=== PATIENT | female | born 1955 | race African-American/Black ===

== ENCOUNTER 2019-02-14 12:02 | Inpatient (IN) ==
[~2019-02-14 12:02] MED LIST: BENADRYL ONE; NS 0 ML ONE; NS 1,000 ML IV ONE; NS 1,000 ML ONE; TYLENOL ONE
[2019-02-14 13:56] LABS: URINE SOURCE CLEAN CATCH
[2019-02-14 13:59] LABS: BILIRUBIN URINE NEGATIVE (NEGATIVE); BLOOD URINE SMALL (NEGATIVE); COLOR YELLOW; GLUCOSE URINE NEGATIVE (NEGATIVE); KETONE URINE 20 mg/dL (NEGATIVE); LEUKOCYTES URINE LARGE (NEGATIVE); NITRITE URINE POSITIVE (NEGATIVE); PROTEIN URINE 50 mg/dL (NEGATIVE); SP GRAVITY URINE 1.022; TURBIDITY URINE HAZY (CLEAR); UROBILINOGEN URINE NORMAL (NORMAL)
[2019-02-14 13:59] LABS: BASO# 0.01 X1000 (0.0-0.2); BASO% 0.6 % (0.0-0.8); EOS# 0.01 X1000 (0.0-0.7); EOS% 0.6 % (0.0-10.0); HEMATOCRIT 31.4 % (37.0-47.0); HEMOGLOBIN 10.9 g/dL (12.0-16.0); LYMPH# 0.85 X1000 (1.2-3.4); LYMPH% 51.2 % (20.5-51.1); MCH 32.2 PG (27-31); MCHC 34.7 g/dL (33-37); MCV 92.9 FL (81-99); MONO# 0.31 X1000 (0.11-0.59); MONO% 18.7 % (1.7-9.3); NEUT# 0.48 X1000 (1.4-6.5); NEUT% 28.9 % (42.2-75.2); PLT 35 X1000 (130-400); RBC 3.38 XMIL (4.2-5.4); RDW 14.9 % (11.5-14.5); WBC 1.66 X1000 (4.8-10.8)
[2019-02-14 14:00] LABS: UR EPITHELIAL CELLS <10 /HPF (<10); URINE BACTERIA 4+ /HPF; URINE RBC <10 /HPF (<10); URINE WBC TNTC /HPF (<10)
--- NOTE | 2019-02-14 14:04 | EKG Report ---
Test Performed on : 02/14/2019 2:03:23 PM Test Reason : sob Blood Pressure : / mmHG Vent. Rate : 088 BPM Atrial Rate : 088 BPM P-R Int : 086 ms QRS Dur : 090 ms QT Int : 388 ms P-R-T Axes : 014 064 062 degrees QTc Int : 469 ms Sinus rhythm. with short [place] Nonspecific ST abnormality Abnormal ECG When compared with ECG of 09-OCT-2017 14:42, No significant change was found Unconfirmed Result
--- NOTE | 2019-02-14 14:16 | PROVIDER DOCUMENTATION ---
HPI-General Adult - General Chief Complaint: General Adult Stated Complaint: DR. MEJIA REFERRED Time Seen by Provider: 02/14/19 13:04 Source: patient, family Unable to obtain history due to:: other (poor historian) Allergies/Adverse Reactions: Patient Allergies Allergy/AdvReac Type Severity Reaction Status Date / Time Penicillins Allergy Unknown Verified 10/09/17 15:07 - History of Present Illness -Gen Adult Nature of Presenting Problems: patient is a 63 yobf presenting to the ED today for low blood pressure. family reports they were going to an apt upstairs, and they sent her down here to the ED for low blood pressure. patient denies any complaints. patient reports she has been receiving treatment for brain cancer for 6-8 months. she denies SOB, CP, dizziness, nausea, vomiting, diarrhea, weakness. family did not know r easoning for doctor appointment this morning, or reason for coming to the ED other than low blood pressure. family and patient are poor historians. Location of Pain/Injury: reports: none Pain Radiation: reports: no radiation Quality of Pain: reports: none Onset/Duration: reports: unsure Associated Symptoms: reports: denies symptoms. denies: anxiety, chest pain, cough, diaphoresis, diarrhea, dizziness, fatigue, fever/chills, genitourinary problems, loss of appetite, muscle aches, shortness of breath, weakness, trouble walking Similar Symptoms Previously?: Yes Recently seen or treated by another doctor?: Yes Review of Systems - Adult - REVIEW OF SYSTEMS - ADULT Constitutional: reports: no symptoms reported. denies: chills, fever Eyes: reports: no symptoms reported Ears, Nose, Mouth & Throat: reports: no symptoms reported Cardiovascular: reports: no symptoms reported. denies: chest pain, palpitations Respiratory: reports: no symptoms reported. denies: cough, shortness of breath, wheezing Gastrointestinal: reports: no symptoms reported. denies: abdominal pain, diarr hea, nausea, vomiting Genitourinary: reports: no symptoms reported Musculoskeletal: reports: no symptoms reported Integumentary: reports: no symptoms reported Neurological: reports: no symptoms reported. denies: dizziness/vertigo, headache/migraines Psychiatric: reports: no symptoms reported Endocrine: reports: no symptoms reported Hematologic/Lymphatic: reports: no symptoms reported Allergic/Immunologic: reports: no symptoms reported All Other Systems: Reviewed and Negative Past History - Adult - PAST MEDICAL HISTORY-ADULT Review of Records: reports: Old Records Reviewed, Nursing Assessment Review, Medications Reviewed Major Childhood Illnesses: reports: denies history Cardiovascular: reports: HTN Endocrine/Immune: reports: thyroid disorder - PRIOR SURGERIES/PROCEDURES Surgical/Procedure History: reports: appendectomy, cholecystectomy, hysterectomy - IMMUNIZATION STATUS Childhood Immunizations: See Nurse Assessment Flu Vaccine: See Nurse Assessment - SOCIAL HISTORY Smoking: cigarettes Provider spent 3-5 mins advising pt. on dangers of tobacco.: Discussed manners to quit use, and f/u contacts for add'l counseling. Physical Exam-General - PHYSICAL EXAM-ADULT Initial Vital Signs Reviewed: Yes - CONSTITUTIONAL General Appearance: alert, no apparent distress, thin - EYES Eyes: PERRL/EOMI - HEAD, EARS, NOSE, MOUTH & THROAT HENMT: normocephalic/atraumatic, moist mucous membranes - NECK Neck: non-tender, full range of motion, supple - RESPIRATORY Respiratory: chest non-tender, lungs clear, normal breath sounds, no pleuratic chest pain, no respiratory distress, no accessory muscle use - CARDIOVASCULAR Cardiovascular: normal peripheral pulses, regular rate, rhythm, no edema, no JVD - GASTROINTESTINAL (ABDOMEN) Abdominal Exam: normal bowel sounds, non tender, soft - LYMPHATIC Lymphatic: no adenopathy - MUSCULOSKELETAL Back Exam: normal inspection, no CVA tenderness, no vertebral tenderness Extremity: normal range of motion, non-tender, normal gait - SKIN Integumentary: normal color, normal turgor, warm/dry - NEUROLOGIC Neurologic: grossly normal, no motor/sensory deficits - PSYCHIATRIC Psych/Mental Status: normal mood/affect, normal thought content, normal thought process, oriented x 3 Progress - PLAN OF CARE/RESULTS Progress/Plan/Lab Results: Vital Signs - 8 hr 02/14/19 12:04 Temperature 97.6 F Pulse Rate 93 H Respiratory Rate 18 Blood Pressure 87/64 O2 Sat by Pulse Oximetry 99 Laboratory Results - last 24 hr 02/14/19 02/14/19 13:40 13:49 WBC 1.66 L RBC 3.38 L Hgb 10.9 L Hct 31.4 L MCV 92.9 MCH 32.2 H MCHC 34.7 RDW Std Deviation 14.9 H Plt Count 35 L* MPV Not Reportable Immature Gran % (Auto) 0.0 Neut % (Auto) 28.9 L Lymph % (Auto) 51.2 H [place] % (Auto) 18.7 H Eos % (Auto) 0.6 Baso % (Auto) 0.6 Immature Gran # (Auto) 0.00 Neut # (Auto) 0.48 L* Lymph # (Auto) 0.85 L [place] # (Auto) 0.31 Eos # (Auto) 0.01 Baso # (Auto) 0.01 Urine Source CLEAN CATCH Urine Color YELLOW Urine Turbidity HAZY Urine pH 6.0 Ur Specific [place] 1.022 Urine Protein 50 A Ur Glucose (Stick) NEGATIVE Ur Ketones (Stick) 20 A Urine Blood SMALL A Urine Nitrite POSITIVE A Urine Bilirubin NEGATIVE Urobilinogen Dipstick NORMAL Urine Leukocytes LARGE A Urine WBC (Auto) TNTC A Urine RBC (Auto) <10 U Epithel Cells (Auto) <10 Urine Bacteria (Auto) 4+ Orders Category Date Time Status CBC WITH ELECTRONIC DIFF [HEME] Stat Lab 02/14/19 13:40 Completed COMPREHENSIVE METABOLIC PANEL [CHEM] Stat Lab 02/14/19 13:43 Received UA [URINALYSIS] [URINALYSIS] Stat Lab 02/14/19 13:49 Completed EKG [EKG] Stat Ther 02/14/19 13:07 Draft discussed plan of care with patient- she understands and agrees with plan of care and denies any questions at this time. 1440: spoke with Dr. Mejia's PA- she reports patient was at last week for sepsis, neutropenia, and UTI. she was discharged on 02/05. she was seen in their office on Monday for a CBC- they report they want her platelet count above 20 since she has a history of GBM- they sent her to outpatient to receive platelets today- the outpatient nurses called their office for the patient's low blood pressure and weakness, and sent her to the ED. patient is receiving Temodar for GBM. Result Diagrams: 02/14/19 13:40 02/14/19 13:40 - EKG 1 Time of EKG reading by physician:: 14:03 EKG Read and Signed by:: Jimi Murphy EKG Interpretation (*Must complete 3 of following elements*): Normal Rate: 88 Rhythm: sinus [place]: normal QRS: normal RI Interval: shortened ST Wave: non-specific ST changes - CONSULTS/PCP/HOSPITALIST Notification #1 *Consult/PCP/Hospitalist*: JONATHAN Schwartz Time Discussed: 15:05 Reason/Comments: admit for UTI and weakness. will see patient in ED Consult Disposition: Will see in ED, Admit Departure - Departure Date of Disposition Decision: 02/14/19 Time of Disposition Decision: 15:00 DIAGNOSIS: Urinary tract infection Qualifiers: Urinary tract infection type: site unspecified Hematuria presence: without hematuria Qualified Code(s): N39.0 - Urinary tract infection, site not specified Disposition: ADMITTED INPATIENT 09 Certified Medical Emergency: Emergent Condition: Fair - Critical Care Note This patient required my direct & personal management of CC.: No Attestation - Physician/ GAYATRI Attestation Patient care was provided by Advanced Practice Provider:: Yes Advanced Practice Provider:: Thea Stark Advanced Practice Provider documentation review:: The Mid-level provider documentation, treatment plan and medical decision making was reviewed by the physician who agrees with all treatment and medical decision making by the MLP. The physician spent face to face time with patient:: No Advanced Practice Provider documentation review:: Supervising physician onsite and consulted in the evaluation and care of this patient. The physician did not have a face to face encounter with the patient.
[2019-02-14 14:19] LABS: AGAP 15; ALB/GLOB RATIO 0.8; ALBUMIN 2.4 g/dL (3.5-5.0); ALKALINE PHOSPHATASE 82 U/L (32-104); BUN 8 mg/dL (8-22); CHLORIDE 102 mmol/L (98-107); COSMO 276; CREATININE 0.5 mg/dL (0.5-0.9); ESTIMATED GFR > 60; GLUCOSE 70 mg/dL (70-104); GOT 24 U/L (10-30); GPT 15 U/L (10-36); SODIUM 140 mmol/L (136-145); TCO2 23 mmol/L (25-35); TOTAL BILIRUBIN 0.51 mg/dL (0.20-1.00); TOTAL PROTEIN 5.3 g/dL (6.3-8.3)
[2019-02-14] MEDS ORDERED: NS 1,000 ML IV ONE (14:30)
[2019-02-14] MEDS ORDERED: NS 1,000 ML IV SCH (16:54)
[2019-02-14] MEDS ORDERED: TYLENOL PO PRN (16:54)
[2019-02-14] MEDS ORDERED: ZOFRAN IV PRN (16:54)
--- NOTE | 2019-02-14 16:59 | Diag Imaging Result Doc PS360 ---
EXAM: CHEST-1 VIEW 02/14/2019 HISTORY: Sepsis protocol TECHNIQUE: AP upright chest at 1647 COMMENT: There is apparent platelike atelectasis over the right hemidiaphragm. The lungs are generally clearer than they were on 10/09/2017. Heart is displaced slightly to the right side compared to the previous examination, which may be due to atelectasis. The radiograph is to be repeated with better inspiration. IMPRESSION: Subsegmental atelectasis in the right lower lobe. Electronically signed by Raj Joe 02/14/2019 4:57 PM
--- NOTE | 2019-02-14 17:16 | Diag Imaging Result Doc PS360 ---
EXAM: CHEST-PORTABLE 02/14/2019 HISTORY: REPEAT TECHNIQUE: AP portable upright at 1708 COMMENT: The platelike atelectasis which was previously seen over the right hemidiaphragm is less prominent. There is still likely to be subsegmental atelectasis however and the heart is still somewhat displaced to the right. IMPRESSION: Right lower lobe atelectasis. Electronically signed by Raj Joe 02/14/2019 5:13 PM
[2019-02-14 17:32] LABS: INR 1.11; PROTIME 14.5 Seconds (11.0-16.0)
[2019-02-14 17:33] LABS: PTT 29.7 Seconds (22.3-41.8)
[2019-02-14 17:35] LABS: EOS# 0.01 X1000 (0.0-0.7); EOS% 0.6 % (0.0-10.0); LYMPH# 0.91 X1000 (1.2-3.4); LYMPH% 56.2 % (20.5-51.1); MONO# 0.31 X1000 (0.11-0.59); MONO% 19.1 % (1.7-9.3); MPV 11.1 FL (7.4-10.4); NEUT% 24.1 % (42.2-75.2)
[2019-02-14 17:36] LABS: HEMATOCRIT 29.3 % (37.0-47.0); MCH 31.7 PG (27-31); MCHC 34.1 g/dL (33-37); RBC 3.15 XMIL (4.2-5.4); RDW 14.8 % (11.5-14.5); WBC 1.62 X1000 (4.8-10.8)
[2019-02-14 17:39] LABS: NEUT# 0.39 X1000 (1.4-6.5); PLT 28 X1000 (130-400)
[2019-02-14 17:52] LABS: AGAP 13; ALBUMIN 2.5 g/dL (3.5-5.0); ALKALINE PHOSPHATASE 76 U/L (32-104); BUN 7 mg/dL (8-22); CALCIUM 7.7 mg/dL (8.8-10.2); CHLORIDE 105 mmol/L (98-107); CK PROFILE 23 U/L (24-173); COSMO 280; CREATININE 0.4 mg/dL (0.5-0.9); ESTIMATED GFR > 60; GLUCOSE 73 mg/dL (70-104); GOT 19 U/L (10-30); GPT 13 U/L (10-36); POTASSIUM 4.1 mmol/L (3.5-5.1); SODIUM 142 mmol/L (136-145); TCO2 24 mmol/L (25-35); TOTAL BILIRUBIN 0.44 mg/dL (0.20-1.00); TOTAL PROTEIN 4.9 g/dL (6.3-8.3)
[2019-02-14 18:18] LABS: LARGE PLATELETS OCCASIONAL; LYMPHS 52 % (21-51); MONO 16 % (1-9); SEGS 32 % (42-75)
[2019-02-14 18:19] LABS: POIKILOCYTOSIS 1+
[2019-02-14] MEDS: ROCEPHIN 1 GM in NS 50 ML IV SCH (18:40)
--- NOTE | 2019-02-14 20:28 | HISTORY AND PHYSICAL ---
PRIMARY CARE PHYSICIAN: Dr. Robinson Martinez. ONCOLOGIST: Dr. Maranda Paris. CHIEF COMPLAINT: Was in outpatient today getting platelets and became weak and dropped her blood pressure, so she was sent to the emergency room for evaluation. HISTORY OF PRESENTING ILLNESS: This is a 63-year-old female who presents to [facility] after she was an outpatient today to get a platelet infusion secondary to her glioblastoma. While there, she became weak and dropped her blood pressure. When she arrived to the emergency room, she had a blood pressure of 87/64. She was given a liter of normal saline and her blood pressure came up to 118/64. She was noted to have been discharged from [facility] on 02/05/2019 with a urinary tract infection, sepsis and neutropenia. So, she will now be admitted for further evaluation and treatment. PAST MEDICAL HISTORY: Of glioblastoma, hypertension, hypothyroidism. PAST SURGICAL HISTORY: Of an appendectomy, cholecystectomy and hysterectomy. FAMILY HISTORY: Reviewed and noncontributory. SOCIAL HISTORY: She currently lives with family. Denies any tobacco, alcohol or illicit drug use. ALLERGIES: To penicillin. HOME MEDICATIONS: We will need to obtain a current list of medications, reconcile, restart and review as appropriate. We will place an order for nursing to update and confirm home medications. LABORATORY DATA: Showed a white blood cell count of 1.66, hemoglobin 10.9, hematocrit 31.4, platelets 35,000. Sodium 140, potassium 4.0, chloride 102, carbon dioxide of 23, BUN of 8, creatinine 0.5, glucose of 70, plasma lactate of 1.2. Urinalysis showed positive nitrites, large leukocytes, 4+ bacteria. EKG showed normal sinus rhythm with short PA at 88. REVIEW OF SYSTEMS: She denied any fever, chills, blurred vision, dizziness. She did have some generalized weakness, low blood pressure. She denied any chest pain, coughing, shortness of breath. She denied any abdominal pain, constipation, diarrhea, burning or hurting with urination. PHYSICAL EXAMINATION: VITAL SIGNS: On arrival she had a temp of 97.6 degrees, pulse 93, respirations 18, blood pressure was 87/64. After a L of fluids it came up to 118/64. She was saturating 99% on 2 L. GENERAL: This is a 63-year-old, thin, cachectic, female who is lying in the bed and answers questions appropriately. HEENT: Normocephalic, atraumatic. Normal ENT inspection. Oropharynx and nares are clear. EYES: Pupils are equal, round, reactive to light and accommodation. Extraocular movements are intact. NECK: Normal inspection. Normal range of motion. LUNGS: Clear to auscultation bilaterally. Equal lung expansion and chest wall movement. HEART: With regular rate and rhythm. No murmurs, rubs, or gallops. ABDOMEN: Soft, nontender, nondistended. Bowel sounds are present x4 quadrants. MUSCULOSKELETAL: She has 3/5 strength x4 extremities. NEUROLOGICAL: The cranial nerves 2-12 are grossly intact. ASSESSMENT: 1. Urinary tract infection. 2. Pancytopenia. 3. Hypotension. 4. Glioblastoma. 5. History of hypothyroidism. PLAN: She will be admitted to the medical unit, placed on telemetry. We will consult her oncologist, Dr. Paris. Place her on neutropenic precautions. Urine cultures. Blood cultures x2 are pending. Normal saline at 125 mL an hour, Rocephin 1 gram IV q.24, we will recheck a CBC, BMP in the a.m. and further orders after seen by attending and by market research consultant. Dictated by JONATHAN Vences for Stevenson Bernard MD cc: JONATAHN Vences MD Wayne E. Thomas, MD I agree with most components of history, physical, assessment and plan. A separate addendum has been dictated. KALEIDA HEALTHMary
--- NOTE | 2019-02-14 20:58 | HISTORY AND PHYSICAL ---
ADDENDUM: I agree with most components of history, physical, assessment and plan. In brief, Ms. 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 It is unclear whether she completed her platelet transfusion, though, she was asymptomatic. In the ER, her initial recorded blood pressure was 80s over 60s and so hospitalist team was consulted for further management. SUBJECTIVE: She denies any chest pain, shortness of breath, palpitation, nausea, vomiting, abdominal pain, blurring of vision, any rash or itching. She states she has not been able to eat very. VITALS: Temperature 97.9 degrees, pulse 89, respiratory rate 18, blood pressure 120/75, saturating 95% room air. PHYSICAL EXAMINATION: GENERAL: Does not appear in any acute distress. MOUTH: Oral cavity is moist. LUNGS: Air entry bilaterally equal. No wheeze, rhonchi, crackles. CARDIOVASCULAR: S1, S2 normal. No rash. The patient does have a prominent, what appears to be mitral regurgitation murmur, as well as aortic regurgitation murmur best heard on apex as well as left sternal border respectively. No gallop. ABDOMEN: Soft, nontender. EXTREMITY: No lower extremity edema. NEUROLOGIC: She is alert. She does have a squint. Her pupils are bilaterally equal reacting to light. She is oriented to place, person, partially with the situation. She does have some memory impairment. She uses walker at baseline. LABS: Suggestive of WBC 1.6, hemoglobin 10.9 platelet count 35,000 normal electrolytes. Urinalysis has positive nitrite, large leukocytes. ASSESSMENT AND PLAN: 1. Hypotension, multifactorial in the setting of poor p.o. intake, ongoing sepsis with UTI. 2. Pancytopenia. 3. Left parietal glioblastoma multiforme. PLAN: 1. Start patient on intravenous fluid resuscitation, neutropenic diet, intravenous ceftriaxone. 2. I will resume her home medications as they are reconciled. She was supposed to be taking levetiracetam for seizure precautions. Plan of care discussed with the patient. All of her questions have been answered. cc: Stevenson Bernard MD MTDD
[2019-02-14] MEDS: NORCO-10 PO PRN (22:33)
[2019-02-15 06:59] LABS: AGAP 10; BUN 7 mg/dL (8-22); CHLORIDE 110 mmol/L (98-107); COSMO 283; CREATININE 0.4 mg/dL (0.5-0.9); ESTIMATED GFR > 60; GLUCOSE 71 mg/dL (70-104); POTASSIUM 3.2 mmol/L (3.5-5.1); SODIUM 144 mmol/L (136-145); TCO2 24 mmol/L (25-35)
[2019-02-15 07:04] LABS: BASO# 0.01 X1000 (0.0-0.2); BASO% 0.7 % (0.0-0.8); EOS# 0.02 X1000 (0.0-0.7); EOS% 1.3 % (0.0-10.0); HEMATOCRIT 27.5 % (37.0-47.0); HEMOGLOBIN 9.2 g/dL (12.0-16.0); LYMPH# 0.83 X1000 (1.2-3.4); LYMPH% 54.6 % (20.5-51.1); MCH 31.1 PG (27-31); MCHC 33.5 g/dL (33-37); MCV 92.9 FL (81-99); MONO# 0.41 X1000 (0.11-0.59); MPV 11.7 FL (7.4-10.4); NEUT# 0.25 X1000 (1.4-6.5); NEUT% 16.4 % (42.2-75.2); PLT 28 X1000 (130-400); RBC 2.96 XMIL (4.2-5.4); RDW 14.9 % (11.5-14.5); WBC 1.52 X1000 (4.8-10.8)
[2019-02-15 07:06] LABS: CALCIUM 7.1 mg/dL (8.8-10.2)
[2019-02-15] MEDS ORDERED: LR 1,000 ML IV SCH (07:30)
[2019-02-15 08:19] LABS: LYMPHS 60 % (21-51); MONO 20 % (1-9); NRBC 1 % (0-0); SEGS 20 % (42-75)
[2019-02-15] MEDS: NORCO-10 PO PRN ×2 (09:41→17:36)
[2019-02-15] MEDS: KLOR-CON PO SCH ×2 (09:43→13:03)
[2019-02-15] MEDS ORDERED: GRANIX SUBQ ONE (11:24)
[2019-02-15 12:40] LABS: INR 1.07
[2019-02-15 12:41] LABS: PTT 30.8 Seconds (22.3-41.8)
[2019-02-15] MEDS ORDERED: NS 500 ML ONE (14:08)
[2019-02-15] MEDS: ROCEPHIN 1 GM in NS 50 ML IV SCH (20:27)
--- NOTE | 2019-02-15 21:39 | PROGRESS NOTE ---
DATE: 02/15/2019 INTERVAL HISTORY: No acute event overnight. She is about to get her platelet transfusion. Her blood pressure was 90s over 60s on most occasions. However, her MAPs are more than 60 mmHg and her lactate was normal. SUBJECTIVE: She is complaining that she still has poor appetite. We discussed about encouraging her to eat more. OBJECTIVE: vital signs: Currently, temperature 98.2 degrees, pulse 88, respiratory rate 16, blood pressure 90/60, saturating 100% on room air. She does not appear in any acute distress. Oral cavity is moist. Air entry bilaterally equal. No wheeze, rhonchi, or crackles. S1, S2 normal. Prominent mitral regurgitation murmur. No gallop. Abdomen: Soft, nontender. She does have bilateral lower extremity edema. She is alert. She has a squint. Her pupils are bilaterally equal, reacting to light. She is oriented to place, person, and mostly with the situation. She does have some memory and word-finding difficulty at baseline, likely in the setting of her glioblastoma. LABORATORY: Suggestive of persistent pancytopenia with absolute neutrophil count of less than 500. Her coagulations otherwise within acceptable range. She does have hypokalemia and hyperchloremia, and her intravenous fluids have been changed. Blood culture, urine cultures, are in lab. ASSESSMENT AND PLAN: 1. Hypotension in the setting of poor oral intake, acute cystitis with suspected sepsis. Continue lactated Ringer's. Continue to encourage oral intake. Continue intravenous ceftriaxone. Follow up final blood culture and urine culture results. 2. Pancytopenia. Patient is receiving platelet transfusion. Continue filgrastim as per Hematology/Oncology recommendations. Continue to monitor CBC. 3. Others. She does have history of left parietal glioblastoma multiforme. Hematology/Oncology on board. 4. Disposition. I will continue to monitor patient inside hospital. Plan of care discussed with her. All of her questions have been answered. cc: Stevenson Bernard MD
--- NOTE | 2019-02-15 21:59 | HEMO/ONC CONSULTATION ---
DATE: 02/15/2019 CONSULTATION REQUESTED BY: Hospice service. REASON FOR CONSULTATION: GBM, patient known. HISTORY OF PRESENT ILLNESS: Ms. Herrera is a 63-year-old female, who is known to us as we are currently treating her for GBM and was recently on Temodar. She was actually at our office on Monday for a lab check, after being admitted to [facility] last week for urosepsis, neutropenia, and weakness. On her visit on Monday, her blood pressure was normal and the patient was feeling relatively fine. She was still on p.o. antibiotics from her hospital discharge. She was neutropenic and we checked labs on Monday. We advised the patient to complete her antibiotics and to contact us if she had any further issues. The patient also had thrombocytopenia, so we set her up to receive a unit of platelets at [facility]. She went there , and they reported that she was very weak, somewhat drowsy, and they were concerned about her state. They tried to resuscitate her with some fluids, but we ultimately decided to send her to the emergency department. She was evaluated there and has subsequently been admitted. She continues to have a urinary tract infection and she continues to be neutropenic. The patient is in today and has no acute complaints while I am in the room. There is no family at bedside. The patient and her family tend to be poor historians. PAST MEDICAL HISTORY: 1. Glioblastoma. Currently, on Temodar, but treatment has been on hold. She is actually due for her next cycle in a couple of days, but we will not proceed with any further treatment at this time. 2. Hypertension. 3. Hypothyroidism. PAST SURGICAL HISTORY: 1. Appendectomy. 2. Cholecystectomy. 3. Hysterectomy. 4. Left parietal tumor debulking in September 2017. SOCIAL HISTORY: Patient lives with her daughters and they help take care of her. FAMILY HISTORY: Positive for hypertension. REVIEW OF SYSTEMS: A 12-point review of systems is negative, except for those expressed in the HPI. PHYSICAL EXAMINATION: Vital Signs: Today, with a temperature 98.5 degrees, heart rate 92, respirations 20, blood pressure 91/67, O2 saturation 100% on room air. General: This is an -[place] female, lying in hospital bed in no acute distress. Head: Evidence of previous craniotomy, but no acute changes. Eyes: Pupils equal, round, reactive. Ears/nose/throat/neck/Mouth: Oral mucosa appears to be normal. Gross auditory acuity is intact. Cardiovascular: Regular rate and rhythm. Respiratory: No respiratory effort with clear to auscultation. Gastrointestinal: Abdomen is soft. Musculoskeletal: No bony abnormalities. Skin: No rash. Neurologic: Patient is alert and oriented. LABORATORY AND STUDIES: White blood cells are 1.52, hemoglobin 9.2, platelet count 28,000, neutrophil count is 250. Sodium 144, potassium 3.2, chloride 110, CO2 of 24, BUN 7, creatinine 0.4. Urinalysis is consistent with urinary tract infection. ASSESSMENT AND PLAN: 1. Glioblastoma multiforme. The patient has been treated with Temodar. Treatment is on hold currently. 2. Urosepsis. Ongoing. The patient was recently in [facility], where she was on IV antibiotics. She has transitioned to p.o. antibiotics as an outpatient, but seems to have failed therapy and has ongoing issues. She is now in with IV antibiotics. 3. Neutropenia. The patient had chemotherapy several weeks ago. We are going to go ahead and start her on Granix due to her acute infection. We will monitor counts daily. 4. Thrombocytopenia. We are going to give her a unit of platelets today. Check a DIC panel. No evidence of bleeding currently. 5. Hypotension. Patient's blood pressure does run on the lower side in our office. However, she presented to outpatient medical prior to her platelet transfusion yesterday with a blood pressure of 70/50. Continue IV fluids per the primary team. Thank you for consulting us on Ms. Renetta Lino while she is here at [facility]. We will continue to follow along and adjust our treatment plan per hospital course. Dictated by CELSA Slaughter for Maranda Paris MD cc: Maranda Paris MD I have seen and examined the patient and the above note reflects my history, physical exam, assessment and plan. Maranda BILLINGS
[2019-02-16 05:51] LABS: BASO# 0.01 X1000 (0.0-0.2); BASO% 0.3 % (0.0-0.8); EOS# 0.04 X1000 (0.0-0.7); EOS% 1.3 % (0.0-10.0); HEMATOCRIT 25.3 % (37.0-47.0); HEMOGLOBIN 8.7 g/dL (12.0-16.0); LYMPH# 0.97 X1000 (1.2-3.4); LYMPH% 31.3 % (20.5-51.1); MCH 31.8 PG (27-31); MCHC 34.4 g/dL (33-37); MCV 92.3 FL (81-99); MONO% 22.6 % (1.7-9.3); MPV 10.7 FL (7.4-10.4); NEUT# 1.38 X1000 (1.4-6.5); NEUT% 44.5 % (42.2-75.2); PLT 100 X1000 (130-400); RBC 2.74 XMIL (4.2-5.4); RDW 14.9 % (11.5-14.5)
[2019-02-16 06:36] LABS: AGAP 11; BUN 5 mg/dL (8-22); CALCIUM 7.6 mg/dL (8.8-10.2); CHLORIDE 107 mmol/L (98-107); COSMO 277; CREATININE 0.5 mg/dL (0.5-0.9); ESTIMATED GFR > 60; GLUCOSE 67 mg/dL (70-104); MAGNESIUM 1.1 mg/dL (1.5-2.7); POTASSIUM 3.9 mmol/L (3.5-5.1); SODIUM 141 mmol/L (136-145); TCO2 23 mmol/L (25-35)
[2019-02-16 07:26] LABS: BANDS 22 % (0-1); LYMPHS 32 % (21-51); MONO 14 % (1-9); SEGS 30 % (42-75)
[2019-02-16 07:27] LABS: HYPOCHROM 1+; LARGE PLATELETS 1+; POIKILOCYTOSIS 1+
[2019-02-16] MEDS ORDERED: GRANIX SUBQ SCH (09:00)
[2019-02-16] MEDS: NORCO-10 PO PRN (10:12)
[2019-02-16] MEDS: MAGNESIUM SULFATE 2 GM/S.W.I. 2 GM/50 ML IVPB IV SCH ×2 (15:51→22:02)
--- NOTE | 2019-02-16 15:54 | PROGRESS NOTE ---
DATE: 02/16/2019 INTERVAL HISTORY: No acute event overnight. The patient was able to eat. She states she is feeling better today than before. She received a transfusion of platelet yesterday which she tolerated well. SUBJECTIVE: She is denying any new complaints. We discussed about improving blood count, improving blood pressure. I answered all of her questions. I encouraged her to eat by mouth. I also told her that I am getting ultrasound of lower extremities to rule out DVT and we also discussed about positive urine culture pending final results. She is denying any other complaints. VITALS: Temperature 98.5 degrees, pulse 105, respiratory rate of 14, blood pressure 90s over 70s, systolic blood pressure has been more than 90 on most occasions, saturating 99% on room air. PHYSICAL EXAMINATION: General: She does not appear in any acute distress. Her oral cavity is moist. Air intake bilaterally equal. No wheeze, rhonchi, crackles. S1, S2 normal. No murmur, rub, or gallop. Abdomen: Soft, nontender. She has bilateral lower extremity edema. She is alert, oriented x3. She has a squint. She does have some speech impairment and stuttering, which is baseline. LABS: Suggestive of improving blood count, resolution of neutropenia, improving WBC count, stable anemia, improving thrombocytopenia. Normal kidney function. Her magnesium is 1.1, which is being repleted and repeat magnesium has been ordered. ASSESSMENT AND PLAN: 1. Hypotension on arrival in the setting of poor p.o. intake, volume depletion and acute cystitis. Stop Lactated Ringer's. Continue to encourage oral intake. Continue intravenous ceftriaxone. Follow up final urine culture results. 2. Pancytopenia, likely in the setting of her chemotherapy, which is now improving. Continue filgrastim as per Hematology Oncology recommendation. Take off neutropenic precautions. Her DIC panel was unremarkable. 3. Bilateral lower extremity edema. Follow up ultrasound to rule out deep vein thrombosis. 4. History of left parietal glioblastoma multiforme. Oncology on board. She is currently being treated with Temodar. 6. Disposition: Based on urine culture, my plan is to discharge her next 24 hours. Plan of care discussed with the patient. All of her questions have been answered. cc: Stevenson Bernard [facility]
[2019-02-16] MEDS: ROCEPHIN 1 GM in NS 50 ML IV SCH (22:03)
[2019-02-17] MEDS: MAGNESIUM SULFATE 2 GM/S.W.I. 2 GM/50 ML IVPB IV SCH (02:17)
[2019-02-17 06:43] LABS: BASO# 0.01 X1000 (0.0-0.2); BASO% 0.2 % (0.0-0.8); EOS# 0.02 X1000 (0.0-0.7); EOS% 0.4 % (0.0-10.0); HEMATOCRIT 26.1 % (37.0-47.0); HEMOGLOBIN 9.1 g/dL (12.0-16.0); IMM GRAN# 0.36 X1000 (0.0-0.04); IMM GRAN% 7.6 % (0.0-0.5); LYMPH# 1.08 X1000 (1.2-3.4); LYMPH% 22.9 % (20.5-51.1); MCHC 34.9 g/dL (33-37); MCV 91.9 FL (81-99); MONO# 1.14 X1000 (0.11-0.59); MONO% 24.2 % (1.7-9.3); MPV 11.8 FL (7.4-10.4); NEUT% 44.7 % (42.2-75.2); PLT 89 X1000 (130-400); RBC 2.84 XMIL (4.2-5.4); WBC 4.71 X1000 (4.8-10.8)
[2019-02-17 07:02] LABS: AGAP 9; BUN 3 mg/dL (8-22); CALCIUM 7.6 mg/dL (8.8-10.2); CHLORIDE 105 mmol/L (98-107); COSMO 273; CREATININE 0.5 mg/dL (0.5-0.9); ESTIMATED GFR > 60; GLUCOSE 73 mg/dL (70-104); MAGNESIUM 2.8 mg/dL (1.5-2.7); POTASSIUM 3.7 mmol/L (3.5-5.1); SODIUM 139 mmol/L (136-145); TCO2 25 mmol/L (25-35)
[2019-02-17 08:45] LABS: BANDS 26 % (0-1); HYPOCHROM 1+; LYMPHS 16 % (21-51); MONO 8 % (1-9); SEGS 46 % (42-75)
[2019-02-17] MEDS ORDERED: LEVAQUIN PO SCH (09:00)
[2019-02-17] MEDS ORDERED: KEPPRA PO ONE (09:54)
--- NOTE | 2019-02-17 10:35 | DISCHARGE SUMMARY ---
ADMISSION DATE: 02/14/2019 DISCHARGE DATE: 02/17/2019 DISCHARGE DISPOSITION: Home. DISCHARGE CONDITION: Hemodynamically stable. Her blood counts have improved. Her urine has detected an identifiable bacteria, and she will be discharged on antibiotics. Ultrasound lower extremity DVT lab slip has been provided to her. DISCHARGE DIAGNOSES: 1. Hypotension in the setting of volume depletion due to poor oral intake and urine infection. 2. Acute cystitis due to Enterobacter cloacae and Pseudomonas aeruginosa. 3. Pancytopenia, could be in the setting of chemotherapy. 4. Bilateral lower extremity edema. 5. Hypomagnesemia. OTHER DIAGNOSES: 1. History of left parietal glioblastoma multiforme, on Temodar. 2. History of appendectomy, cholecystectomy, and hysterectomy. 3. History of essential hypertension and chronic gastroesophageal reflux disease. DISCHARGE MEDICATIONS: Mirtazapine 15 mg at nighttime, hydrocodone/acetaminophen 1 tablet every 8 hours as needed, vitamin B12 at 500 mcg daily, multivitamin, iron, folic acid 1 tablet daily, dronabinol 2.5 mg b.i.d., levetiracetam 1000 mg b.i.d., omeprazole 20 mg daily, potassium 8 mEq b.i.d., albuterol sulfate 8.5 mg inhaled as needed for shortness of breath, levofloxacin 500 mg daily, 10 tablets have been prescribed. PHYSICAL EXAMINATION: Discharge Vital Signs: Temperature 98.9 degrees, pulse 98, respiratory rate 12, blood pressure 90/60, saturating 97% on room air. General: The patient is able to go to the bathroom and come back without any difficulty or help or support. HEENT: Oral cavity is moist. Lungs: Air entry bilaterally equal. No wheeze, rhonchi, crackles. Cardiovascular: S1, S2 normal. She has occasional diastolic murmur affecting base of the heart. Abdomen: Soft, nontender. Extremities: Bilateral lower extremity edema. Neurologic: She is alert and oriented x3. She does have some speech abnormality because of her glioblastoma, and has squint. SIGNIFICANT LABORATORY DATA AT DISCHARGE: WBC 4.7, hemoglobin 9.1, platelets 89,000. BUN 3, creatinine 0.5. Magnesium 2.8.. SIGNIFICANT MICROBIOLOGY DURING HOSPITAL ADMISSION: Blood culture did not have any growth. Urine culture had Enterobacter cloacae and Pseudomonas aeruginosa, sensitive to levofloxacin. SIGNIFICANT IMAGING DURING HOSPITAL ADMISSION: Chest x-ray had subsegmental atelectasis in right lower lobe. The patient received 1 unit of platelet transfusion during hospital admission. HOSPITAL COURSE SUMMARY: Ms. Lino is a 63-year-old lady with past medical history of left parietal glioblastoma multiforme, on Temodar, who was recently admitted to [facility] for urosepsis, was getting outpatient platelet transfusion for her pancytopenia, where she was found to have hypotension with systolic blood pressure in 80s, diastolic in 50s, and so was sent over to the emergency room. The patient was asymptomatic of this blood pressure, and was not tachycardic. In the emergency room, she was found to have blood pressure of 87/64, but considering her pancytopenia and recent episode of hypertension, she was kept inside the hospital, also because she had pyuria, though she was just treated for urinary tract infection. Inside the hospital, she was resuscitated with intravenous fluids, and she received 1 unit of platelet transfusion as well as filgrastim. Her urine culture grew Pseudomonas and Enterobacter cloacae sensitive to levofloxacin. At the time of discharge, she will be discharged on oral levofloxacin. Her blood count improved after daily injections of filgrastim as well as a unit of platelet transfusion. At the time of discharge, detailed discharge instructions were provided to her to have followup with her regular doctor, and to get ultrasound lower extremity DVT. The lab slip has been provided to her. TIME SPENT: More than 30 minutes were spent in discharging this patient. cc: Stevenson Bernard MD
[2019-02-18 08:46] VITALS: BP 76/71
== END 2019-02-17 10:45 | disposition home or self-care (01) | DRG 640 ==
LOC: ED 12:02 → 4N 15:49
PROVIDERS: ATTEND Internal Medicine

== ENCOUNTER 2019-03-26 10:14 | Inpatient (IN) ==
[2019-03-26] MEDS ORDERED: NS 1,000 ML IV ONE ×3 (10:31→17:13)
--- NOTE | 2019-03-26 10:56 | Diag Imaging Result Doc PS360 ---
EXAM: CHEST-PORTABLE 03/26/2019 HISTORY: weakness TECHNIQUE: AP portable at 1046 COMMENT: The inspiration is slightly suboptimal. The heart is somewhat rotated to the right. This was also the case on 02/14/2019. There are platelike opacities in the left lower lobe which are slightly worse than on the previous study. Otherwise are has been no significant change. IMPRESSION: Minimal left lower lobe atelectasis. Electronically signed by Raj Joe 03/26/2019 10:54 AM
--- NOTE | 2019-03-26 10:59 | EKG Report ---
Test Performed on : 03/26/2019 10:42:55 AM Test Reason : weakness Blood Pressure : / mmHG Vent. Rate : 099 BPM Atrial Rate : 099 BPM P-R Int : 118 ms QRS Dur : 084 ms QT Int : 336 ms P-R-T Axes : 057 063 081 degrees QTc Int : 431 ms Normal sinus rhythm. Possible Left atrial enlargement Nonspecific ST abnormality Abnormal ECG When compared with ECG of 09-MAR-2019 10:07, (Unconfirmed) No significant change was found Unconfirmed Result
--- NOTE | 2019-03-26 11:16 | PROVIDER DOCUMENTATION ---
HPI-General Adult - General Chief Complaint: B/P Problems Stated Complaint: FALL Time Seen by Provider: 03/26/19 10:24 Source: patient, family Allergies/Adverse Reactions: Patient Allergies Allergy/AdvReac Type Severity Reaction Status Date / Time Penicillins Allergy Severe RASH Verified 03/26/19 11:36 Home Medications: Home Medication List Medication Instructions Recorded Confirmed Last Taken Type Albuterol Sulfate [Proair Hfa] 8.5 gm INHALATION Q6H PRN PRN 02/14/19 03/26/19 03/26/19 07:30 History Cyanocobalamin (Vitamin B-12) 500 mcg PO DAILY 02/14/19 03/26/19 03/26/19 07:30 History [B-12] Dronabinol 2.5 mg PO BID 02/14/19 03/26/19 03/26/19 07:30 History Hydrocodone Bit/Acetaminophen 1 tab PO Q8HR 02/14/19 03/26/19 03/26/19 07:30 History [Hydrocodon-Acetaminophn 10-325] Levetiracetam 1,000 mg PO BID 02/14/19 03/26/19 03/26/19 07:30 History Mirtazapine 15 mg PO QHS 02/14/19 03/26/19 03/26/19 07:30 History Multivitamin/Iron/Folic Acid 1 tab PO DAILY 02/14/19 03/26/19 03/26/19 07:30 History [Centrum Women Tablet] Omeprazole 1 cap PO DAILY 02/14/19 03/26/19 03/26/19 07:30 History Potassium Chloride 8 meq PO BID 02/14/19 03/26/19 03/26/19 07:30 History - History of Present Illness -Gen Adult Nature of Presenting Problems: This is a 64yo female with active brain cancer who presents with CC of low blood pressure and weakness. They report that they were sent in when the cancer center noted low blood pressure. 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 There is also some possible blood in the urine. Location of Pain/Injury: reports: generalized Timing: reports: still present (several) Context/Activities at Onset: reports: light activity Modifying Factors: improves with: movement Associated Symptoms: reports: nausea. denies: rash Review of Systems - Adult - REVIEW OF SYSTEMS - ADULT ROS:: some from patient Constitutional: denies: fever Eyes: denies: eye pain Ears, Nose, Mouth & Throat: denies: throat pain Cardiovascular: denies: chest pain Respiratory: reports: cough, shortness of breath Gastrointestinal: denies: abdominal pain Genitourinary: denies: dysuria Musculoskeletal: denies: back pain Integumentary: denies: rash Neurological: denies: headache/migraines Psychiatric: denies: alcohol/drug dependence Endocrine: reports: other (weight loss) Hematologic/Lymphatic: reports: other (no clots) Past History - Adult - PAST MEDICAL HISTORY-ADULT Review of Records: reports: Old Records Reviewed Major Childhood Illnesses: reports: denies history Cardiovascular: reports: HTN Endocrine/Immune: reports: cancer (glioblastoma breast cancer), thyroid disorder - PRIOR SURGERIES/PROCEDURES Surgical/Procedure History: reports: appendectomy, cholecystectomy, hysterectomy - IMMUNIZATION STATUS Childhood Immunizations: See Nurse Assessment Flu Vaccine: See Nurse Assessment - FAMILY HISTORY Family History: reviewed, not pertinent Physical Exam-General - CONSTITUTIONAL General Appearance: no apparent distress, cachetic, slow to respond - EYES Eyes: negative: scleral icterus - HEAD, EARS, NOSE, MOUTH & THROAT HENMT: normocephalic/atraumatic, moist mucous membranes - NECK Neck: normal inspection - RESPIRATORY Respiratory: crackles (Left lobe with crackles throughout, right lung clear) - CARDIOVASCULAR Cardiovascular: regular rate, rhythm, other (1+ lower extremity on the LLE, trace edema on the right) - GASTROINTESTINAL (ABDOMEN) Abdominal Exam: non tender, soft - SKIN Integumentary: normal color - NEUROLOGIC Neurologic: grossly normal - PSYCHIATRIC Psych/Mental Status: normal mood/affect, oriented x 3 (oriented to person, place, and month) Progress - PLAN OF CARE/RESULTS Progress/Plan/Lab Results: Vital Signs - 8 hr 03/26/19 10:25 Temperature 98.2 F Pulse Rate 101 H Respiratory Rate 17 Blood Pressure 63/57 O2 Sat by Pulse Oximetry 94 L Orders Category Date Time Status Saline Loc NOW Care 03/26/19 10:24 Active CHEST-PORTABLE [RAD] Stat Exams 03/26/19 10:25 Completed CBC WITH ELECTRONIC DIFF [HEME] Stat Lab 03/26/19 10:24 Uncollected COMPREHENSIVE METABOLIC PANEL [CHEM] Stat Lab 03/26/19 10:24 Uncollected URINALYSIS W/POSS RFLX CULT [URINALYSIS] Stat Lab 03/26/19 10:24 Uncollected 0.9% Sodium Chloride Inj [Ns] 1,000 ml Med 03/26/19 10:31 Active IV 999 mls/hr EKG [EKG] Stat Ther 03/26/19 10:24 Draft Result Diagrams: 03/26/19 11:55 03/26/19 11:55 - REASSESSMENT Reassessment #1 Status: unchanged (Fluids running, heart rate with some improvement.) Reassessment #2 Status: unchanged (Blood pressure not responsive to fluids. BP still in the 80s. Patient resting comfortably. Will check CT head given brain cancer history. Discussed with hospitalist team who have accepted the patient. Also giving and another fluid bolus.) Departure - Departure Date of Disposition Decision: 03/26/19 Time of Disposition Decision: 17:44 DIAGNOSIS: Hypotension Qualifiers: Hypotension type: unspecified hypotension type Qualified Code(s): I95.9 - Hypotension, unspecified Brain cancer Qualifiers: Malignant neoplasm of brain location: unspecified location Qualified Code(s): C71.9 - Malignant neoplasm of brain, unspecified Disposition: ADMITTED INPATIENT 09 Certified Medical Emergency: Emergent Condition: Serious Referrals and Follow-Ups: Robinson Martinez MD [Primary Care Provider] - - Critical Care Note This patient required my direct & personal management of CC.: No Attestation - Physician/ GAYATRI Attestation Patient care was provided by Advanced Practice Provider:: No The physician spent face to face time with patient:: Yes Advanced Practice Provider documentation review:: Supervising physician onsite and consulted in the evaluation and care of this patient. The physician did have a face to face encounter with the patient.
[2019-03-26 12:07] LABS: BASO# 0.02 X1000 (0.0-0.2); BASO% 0.3 % (0.0-0.8); HEMATOCRIT 29.6 % (37.0-47.0); HEMOGLOBIN 10.4 g/dL (12.0-16.0); IMM GRAN# 0.03 X1000 (0.0-0.04); IMM GRAN% 0.5 % (0.0-0.5); LYMPH% 11.2 % (20.5-51.1); MCH 33.5 PG (27-31); MCHC 35.1 g/dL (33-37); MCV 95.5 FL (81-99); MONO# 0.61 X1000 (0.11-0.59); MONO% 9.8 % (1.7-9.3); MPV 10.4 FL (7.4-10.4); NEUT# 4.89 X1000 (1.4-6.5); NEUT% 78.2 % (42.2-75.2); PLT 249 X1000 (130-400); RDW 21.3 % (11.5-14.5); WBC 6.25 X1000 (4.8-10.8)
[2019-03-26 12:31] LABS: AGAP 18; ALB/GLOB RATIO 0.8; ALBUMIN 2.8 g/dL (3.5-5.0); ALKALINE PHOSPHATASE 103 U/L (32-104); BUN 15 mg/dL (8-22); CALCIUM 9.1 mg/dL (8.8-10.2); CHLORIDE 107 mmol/L (98-107); COSMO 288; CREATININE 0.6 mg/dL (0.5-0.9); ESTIMATED GFR > 60; GLUCOSE 106 mg/dL (70-104); GOT 36 U/L (10-30); GPT 32 U/L (10-36); POTASSIUM 4.6 mmol/L (3.5-5.1); SODIUM 144 mmol/L (136-145); TCO2 19 mmol/L (25-35); TOTAL PROTEIN 6.3 g/dL (6.3-8.3)
[2019-03-26 13:46] LABS: URINE SOURCE CATH
[2019-03-26 13:53] LABS: BILIRUBIN URINE SMALL (NEGATIVE); BLOOD URINE NEGATIVE (NEGATIVE); COLOR ORANGE; GLUCOSE URINE NEGATIVE (NEGATIVE); KETONE URINE TRACE mg/dL (NEGATIVE); LEUKOCYTES URINE SMALL (NEGATIVE); NITRITE URINE NEGATIVE (NEGATIVE); PH URINE 5.5; PROTEIN URINE TRACE mg/dL (NEGATIVE); SP GRAVITY URINE 1.028; TURBIDITY URINE CLEAR (CLEAR); UROBILINOGEN URINE 12 mg/dL (NORMAL)
[2019-03-26] MEDS ORDERED: TYLENOL PO ONE (13:58)
[2019-03-26 13:59] LABS: UR EPITHELIAL CELLS <10 /HPF (<10); URINE BACTERIA NEGATIVE /HPF; URINE RBC <10 /HPF (<10); URINE WBC <10 /HPF (<10)
[2019-03-26 14:25] LABS: URINE CASTS GRANULAR PRESENT; URINE CRYSTALS NONE SEEN; URINE YEAST NONE SEEN
[2019-03-26] MEDS ORDERED: OFIRMEV 1000 MG/ISOTONIC SOLN 1,000 MG/100 ML BOTTLE IV ONE (15:07)
--- NOTE | 2019-03-26 18:33 | Diag Imaging Result Doc PS360 ---
EXAM: CT HEAD W/O CONTRAST - 03/26/2019 HISTORY: Headache and history of brain cancer TECHNIQUE: CT head without contrast. No contrast administered per request of the referring provider. COMPARISON: None. FINDINGS: There are postsurgical changes of left parietal craniotomy. There is an approximately 2.3 x 1.8 cm calcified lesion now visible at the left parietal lobe. There is left parietal white matter edema which has decreased compared to prior. There is associated decreased mass effect on the left lateral ventricle and decreased midline shift compared to prior. There is 2 mm residual midline shift to the right. There are no other acute changes identified. There is no evidence of intracranial hemorrhage. IMPRESSION: 2.3 x 1.8 cm calcified lesion at left parietal region. White matter edema at left parietal region which has decreased compared to prior. No evidence of hemorrhage. This exam was performed using automated exposure control, adjustment of mA or kV according to patient size, and/or use of iterative reconstruction technique. Electronically signed by Adolph Carmona 03/26/2019 6:31 PM
[2019-03-26] MEDS ORDERED: DECADRON IV ONE (20:51)
--- NOTE | 2019-03-26 21:53 | HISTORY AND PHYSICAL ---
PRIMARY CARE PHYSICIAN: Dr. Chuy Martinez. REASON FOR ADMISSION: Dizziness and lightheadedness. REASON FOR ADMISSION: Dizziness and generalized weakness. HISTORY OF PRESENT ILLNESS: Ms. Renetta Lino is an unfortunate 61-year-old woman with past medical history of glioblastoma multiforme. She has been undergoing chemotherapy up until about 1 month ago when she was deemed too weak to continue with this treatment per her oncologist. She reports that she has been profoundly lightheaded usually posturally for the last couple of weeks. While she was at her oncologist's office the patient said she became profoundly lightheaded when trying to stand and slumped and fell on her feet while in the office. She denies any blacking out or loss of consciousness. She denies any antecedent vomiting, diarrhea or bleeding from any orifice. No change in her medications. Has not stopped any of her medications. She denies any vertigo. She says she has had a constant sharp frontal headache for several months, there is no aggravating or relieving factors. No visual symptoms other than some mild myopia for a year. No difficulty swallowing. No focal neurological complaints. No bowel or bladder dysfunction. REVIEW OF SYSTEMS: Only notable for decreasing loss of appetite and weight loss. No fever or night sweats. ALLERGIES: To penicillins. HOME MEDICATIONS: She is on Remeron 50 mg at bedtime, Glenn 10 mg at bedtime q.8 p.r.n. vitamin B12 500 mcg daily, multivitamin tablets once a day, dronabinol 2.5 mg b.i.d., Keppra 1000 mg b.i.d., omeprazole 20 mg daily, potassium chloride 8 mEq b.i.d., and albuterol inhalers p.r.n. PAST SURGICAL HISTORY: Appendectomy, cholecystectomy, hysterectomy. 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 FAMILY HISTORY: Mom had cancer type unknown. She also had type 2 diabetes. SOCIAL HISTORY: She lives with her boyfriend. She does not smoke, drink or use drugs. LABORATORY DATA: CT of the head, this was dictated at 6:30 p.m., this showed a 2.3 x 1.8 cm calcified lesion in the left parietal area, with white matter edema in the left parietal area, which has decreased compared to prior findings. Chest film, minimal lower lobe atelectasis. Electrocardiogram that showed normal sinus rhythm with nonspecific ST wave changes. Other lab work, white count 6000, H and H 10 and 29, platelets 249,000 with 78 percent neutrophils. BUN 15, creatinine 0.6, glucose 106, AST 36, ALT 32, troponin is negative. Lactate is normal. Urinalysis with small bilirubin, small urobilinogen, a few small leukocytes, trace protein, trace ketones, with also granular casts seen. PHYSICAL EXAMINATION: VITAL SIGNS: Blood pressure on admission was in the 60s or 70s. After 3 L her blood pressure is only 82/64, heart rate is 81, respirations 19, temperature is 98.2 degrees. GENERAL: She is a chronically ill, anorexic, slightly emaciated middle-aged woman who is not in acute distress. She is A and O x3 with normal mood and affect. HEENT: Head: She has alopecia, but is atraumatic and normocephalic. Eyes: SHANNAN, EOMI. She is anicteric, but pale. ENT and oropharynx exam is grossly normal. NECK: Supple. No JVD or carotid bruit. No thyromegaly. CHEST: Clear to auscultation. Good air entry in both lung dumont. CARDIOVASCULAR: First and second heart sounds are heard. A loud 3/6 ejection systolic murmur heard in the left lateral sternal border. No radiation, no gallops or rubs. ABDOMEN: Scaphoid, soft, nontender, no splenomegaly. Bowel sounds are normal. RECTAL: Exam is deferred. EXTREMITIES: The patient has significant decreased pulse volumes, but rhythm is regular and symmetrical. No edema, clubbing or peripheral cyanosis. NEUROLOGIC: No gross focal deficits. SKIN: Good turgor surprisingly. No breakdown, lesion or erythema. MUSCULOSKELETAL: Exam is grossly normal. ASSESSMENT: 1. Protracted hypotension probably secondary to decreased intravascular volume probably secondary to poor oral intake, also rule out possibility of adrenal insufficiency, also rule out the possibility of medication-induced hypotension possibly from Marinol and orthostatic hypotension. Remeron has been associated with this too. We will discontinue both of these medications. 2. GBM: We will defer to Dr. Ceballos. 3. Malnutrition. Recommend consulting dietitian. The plan is to continue IV fluid resuscitation. Gave the patient a trial dose of Decadron. Check cortisol level. Do a random cortisol level this evening and an a.m. level to see if she has adrenal insufficiency. We will hold the aforementioned medications above and continue fluids and/or if needed pressors, which I do not think she needs at this time. We will monitor over the next 48 hours and see how she responds to this plan of care. Otherwise supportive measures to be instituted. Construction Engineer consult. Possible PPN if needed to supplement her oral intake. cc: Taye Liu MD
[2019-03-26] MEDS ORDERED: ZOFRAN IV PRN (22:00)
[2019-03-26] MEDS ORDERED: KLOR-CON PO SCH (22:00)
[2019-03-26] MEDS ORDERED: VENTOLIN HFA INH PRN (22:00)
[2019-03-26] MEDS ORDERED: NS 1,000 ML IV SCH (22:00)
[2019-03-26] MEDS ORDERED: TYLENOL PO PRN (22:00)
[2019-03-27] MEDS: KEPPRA PO SCH ×3 (00:04→21:22)
[2019-03-27] MEDS: NORCO-10 PO SCH ×5 (00:04→21:23)
[2019-03-27] MEDS: LOVENOX SUBQ SCH ×2 (00:05→21:23)
[2019-03-27] MEDS ORDERED: INSTA-GLUCOSE PO ONE (03:41)
[2019-03-27] MEDS ORDERED: D50W SYRINGE IV PRN ×2 (03:57→04:19)
[2019-03-27] MEDS ORDERED: D5 NS 1,000 ML IV SCH (04:30)
[2019-03-27] MEDS: PRILOSEC PO SCH (06:46)
[2019-03-27 08:24] LABS: INR 1.1; PROTIME 14.3 Seconds (11.0-16.0)
[2019-03-27] MEDS: MICRO-K PO SCH ×2 (08:37→21:22)
[2019-03-27] MEDS ORDERED: NS 250 ML ONE (08:38)
[2019-03-27] MEDS ORDERED: NS 1,000 ML IV SCH (08:45)
[2019-03-27] MEDS: D5 NS 1,000 ML IV SCH ×3 (08:56→23:01)
[2019-03-27] MEDS: CLINIMIX E 4.25%-5% SOLUTION 1,000 ML IV SCH ×2 (12:05→23:04)
[2019-03-27] MEDS: LIPOSYN 20% 250 ML IV SCH (12:05)
--- NOTE | 2019-03-27 12:05 | PROGRESS NOTE ---
DATE: 03/27/2019 SUBJECTIVE: The patient reports feeling fine. Denies any headache. She is still a little bit confused and disoriented, but answered questions appropriately. OBJECTIVE: Vital Signs: Temperature 98.3, heart rate 75, respiratory rate 13, blood pressure 88/67, O2 saturation 100% on room air. General: This is a chronically ill-appearing, 64-year- old, female, lying in bed in no acute distress. Cardiovascular: S1, S2 heard. No murmurs, gallops, or rubs. Regular rate and rhythm. Respiratory: Clear bilaterally to auscultation. No work of breathing or using accessory muscles. Abdomen: Soft. Nontender to palpation. Bowel sounds present. No organomegaly. Extremities: No clubbing, cyanosis, or edema. Peripheral pulses present in both legs. Neurological: The patient is still slow to answer questions. No gross focal deficit noted. Moves all 4 extremities spontaneously. LABORATORY DATA: There are no labs from today. ASSESSMENT AND PLAN: 1. Protracted hypotension. Reason is still unknown. We have started her on intravenous fluids. There is a possibility for this patient to have adrenal insufficiency. We have checked cortisol level in the morning, and that is within normal limits. She has received one dose of dexamethasone. Also, possibilities of adverse reaction to medication, for example to Remeron, has been considered, and this medication has been stopped. Blood pressure continues to be low. There is an order for vasopressor, but this medication has not been started yet at the time of my examination. We are also ruling out other infectious causes, so we have ordered a urine culture and blood culture, but those are still pending. I do not think she has an active infection, but will continue to monitor this patient closely. 2. Glioblastoma multiforme. Dr. Ceballos from Oncology has been consulted. Will follow recommendations. Apparently, daughter has mentioned that the patient has been told that she is not a candidate to continue any chemotherapy 1 month ago. In any case, we will follow recommendations from Dr. Ceballos. 3. Malnutrition. We have started her on Clinimix and lipids. We are going to get a peripherally- inserted central catheter line as well. 4. Disposition. Will continue to monitor this patient closely in the intensive care unit. cc: Ben Roy MD
[2019-03-27] MEDS ORDERED: LASIX IV ONE (14:39)
[2019-03-27 15:41] LABS: AGAP 8; ALB/GLOB RATIO 0.8; ALBUMIN 1.9 g/dL (3.5-5.0); ALKALINE PHOSPHATASE 65 U/L (32-104); BUN 8 mg/dL (8-22); CALCIUM 6.9 mg/dL (8.8-10.2); CHLORIDE 112 mmol/L (98-107); COSMO 280; CREATININE 0.3 mg/dL (0.5-0.9); ESTIMATED GFR > 60; GLUCOSE 114 mg/dL (70-104); GOT 23 U/L (10-30); GPT 20 U/L (10-36); MAGNESIUM 1.3 mg/dL (1.5-2.7); POTASSIUM 3.5 mmol/L (3.5-5.1); SODIUM 141 mmol/L (136-145); TCO2 21 mmol/L (25-35); TOTAL BILIRUBIN 0.83 mg/dL (0.20-1.00); TOTAL PROTEIN 4.4 g/dL (6.3-8.3)
[2019-03-27] MEDS ORDERED: CALCIUM GLUCONATE 2 GM in NS 100 ML IV ONE (15:57)
[2019-03-27 17:40] LABS: BASO# 0.01 X1000 (0.0-0.2); BASO% 0.2 % (0.0-0.8); EOS# 0.04 X1000 (0.0-0.7); EOS% 0.9 % (0.0-10.0); HEMATOCRIT 26.2 % (37.0-47.0); HEMOGLOBIN 8.9 g/dL (12.0-16.0); LYMPH# 1.24 X1000 (1.2-3.4); LYMPH% 27.4 % (20.5-51.1); MCH 32.7 PG (27-31); MCV 96.3 FL (81-99); MONO# 0.76 X1000 (0.11-0.59); MONO% 16.8 % (1.7-9.3); NEUT# 2.48 X1000 (1.4-6.5); NEUT% 54.7 % (42.2-75.2); PLT 193 X1000 (130-400); RBC 2.72 XMIL (4.2-5.4); RDW 21.4 % (11.5-14.5); WBC 4.53 X1000 (4.8-10.8)
--- NOTE | 2019-03-27 21:03 | HEMO/ONC CONSULTATION ---
DATE: 03/27/2019 REQUESTING PHYSICIAN: Hospitalist Service REASON FOR CONSULTATION: Glioblastoma multiforme, patient known. HISTORY OF PRESENT ILLNESS: Ms. Lino is an unfortunate 64-year-old female who is known to us as we are treating her for glioblastoma multiforme. She was actually at our office on 03/26/2019 for a visit when she was found to be severely hypotensive with a blood pressure of 62/45. She also was found to be hypoxic with an O2 saturation of 84% at that time. Her daughter reported the patient had fallen on the way into our clinic, and we had decided to go ahead and send her to the emergency department for further evaluation. The patient previously had been taking Temodar for her GBM; however, she recently was taken off the medication after having multiple hospitalizations for pancytopenia, UTIs and hypotension. She also has had a decline in performance status and decreased p.o. intake. She likely has not had Temodar since January. She is now in volume depletion secondary to poor p.o. intake. She is receiving IV fluids, and they are also checking for adrenal insufficiency. PAST MEDICAL HISTORY: 1. Hypertension. 2. Arthritis. 3. GBM that was diagnosed in September of 2017. She has been on Temodar previously but that medication is currently on hold. SURGICAL HISTORY: Positive for: 1. Left parietal tumor debulking September of 2017. 2. Tonsillectomy. 3. Cholecystectomy. 4. Complete hysterectomy. SOCIAL HISTORY: Patient lives with her daughter and also has a niece. Her family members take care of her and always bring her to her appointments. She is a former smoker. She denies any alcohol use or illicit drug use. FAMILY HISTORY: Positive for hypertension and COPD. REVIEW OF SYSTEMS: Twelve point review of systems negative except for expressed in HPI. PHYSICAL EXAMINATION: Vital Signs: Temperature 99.5 degrees, heart rate is 88, respirations 12, blood pressure 83/62, O2 saturation 100% on room air. General: This is a thin, female sitting in hospital bed in the ICU. There is no one at bedside. She is in no acute distress. Head: Appears to be atraumatic. Eyes: Pupils equal, round, reactive. Ears, nose, throat, neck, mouth: Mucosa appears to be normal. Cardiovascular: Regular rate and rhythm. Respiratory: Chest is essentially clear. Gastrointestinal: Abdomen is soft. Positive bowel sounds. Musculoskeletal: Muscle wasting but no bony abnormalities. Skin: No rashes. Neurologic: Patient is alert and oriented. She is able to answer questions. LABS AND STUDIES: White blood cells from yesterday are 6.25, hemoglobin 10.4, platelet count 249,000. Calcium is critically low at 6.9 today. ASSESSMENT AND PLAN: 1. Glioblastoma multiforme, previously on Temodar. Temodar has recently had to be discontinued due to continued cytopenias as well as a decline in performance status. The patient has had multiple hospitalizations for hypotension, urinary tract infections and poor p.o. intake. The patient is in the room by herself today, but we did discuss with her considering hospice. I have gone ahead and placed a palliative care consult for further discussion. No treatment at this time is planned. 2. Protracted hypotension. We have done blood cultures, which are currently pending. She continues on IV fluids and close monitoring in the ICU. Continue management per Dr. Simpson and his team. 3. Malnutrition. Patient will continue with Clinimix per Dr. Simpson's guidance. 4. Disposition. Again, we have asked Palliative Care to come see the patient. We will follow up on their discussion. We will also continue to talk to the patient and her family about the option of possibly hospice. Thank you for consulting us on Ms. Lino. We will continue to follow along and adjust treatment plan per hospital course. Dictated by CELSA Slaughter for Maranda Paris MD cc: Maranda Paris MD
[2019-03-27] MEDS: LEVOPHED 8 MG in D5 1/2 NS 250 ML IV SCH (23:00)
[2019-03-28] MEDS: PRILOSEC PO SCH (07:18)
[2019-03-28] MEDS: D5 NS 1,000 ML IV SCH (07:29)
[2019-03-28] MEDS: NORCO-10 PO SCH ×3 (07:30→21:20)
[2019-03-28 07:38] LABS: BASO# 0.01 X1000 (0.0-0.2); BASO% 0.1 % (0.0-0.8); EOS# 0.13 X1000 (0.0-0.7); EOS% 1.7 % (0.0-10.0); HEMATOCRIT 23.2 % (37.0-47.0); HEMOGLOBIN 7.9 g/dL (12.0-16.0); IMM GRAN# 0.02 X1000 (0.0-0.04); IMM GRAN% 0.3 % (0.0-0.5); LYMPH# 1.52 X1000 (1.2-3.4); LYMPH% 20.4 % (20.5-51.1); MCH 32.8 PG (27-31); MCHC 34.1 g/dL (33-37); MCV 96.3 FL (81-99); MONO# 0.82 X1000 (0.11-0.59); MPV 9.8 FL (7.4-10.4); NEUT# 4.96 X1000 (1.4-6.5); NEUT% 66.5 % (42.2-75.2); PLT 173 X1000 (130-400); RBC 2.41 XMIL (4.2-5.4); RDW 20.6 % (11.5-14.5); WBC 7.46 X1000 (4.8-10.8)
[2019-03-28 07:50] LABS: AGAP 8; BUN 7 mg/dL (8-22); CALCIUM 7.2 mg/dL (8.8-10.2); CHLORIDE 110 mmol/L (98-107); COSMO 284; CREATININE 0.2 mg/dL (0.5-0.9); ESTIMATED GFR > 60; GLUCOSE 158 mg/dL (70-104); POTASSIUM 3.4 mmol/L (3.5-5.1); SODIUM 142 mmol/L (136-145); TCO2 24 mmol/L (25-35)
[2019-03-28] MEDS: MICRO-K PO SCH ×2 (08:18→20:12)
[2019-03-28] MEDS: KEPPRA PO SCH ×2 (08:18→20:12)
--- NOTE | 2019-03-28 10:05 | PROGRESS NOTE ---
DATE: 03/28/2019 SUBJECTIVE: Patient reports feeling better. Denies any headache. Her appetite is poor though. OBJECTIVE: Vital Signs: Temperature 100 degrees, heart rate 117, respiratory rate 18, blood pressure 102/74, and O2 saturation 99% on room air. General: This is a chronically ill appearing 64-year-old female looking older than her stated age lying in bed in no acute distress. Cardiovascular: S1, S2 heard. No murmurs, gallops, or rubs. Regular rate and rhythm. Respiratory: Clear bilaterally to auscultation. No work of breathing or using accessory muscles. Abdomen: Soft. Nontender to palpation. Bowel sounds present. No organomegaly. Extremities: No clubbing, cyanosis, or edema. Peripheral pulses present in both legs. Neurological: Patient is still answering question better in comparing with yesterday though. No gross focal deficit noted. Moves 4 extremities. LABORATORY DATA: Reviewed. ASSESSMENT AND PLAN: 1. Hypotension. Reason is still unclear. The patient has been started on low doses of Levophed. We will continue with same management. Blood cultures and urine cultures still pending. At this point, we will continue to monitor. 2. Glioblastoma multiforme. Recommendation from Dr. Ceballos from Hematology/Oncology is to look for hospice. I talked to the patient, but she refused to have hospice here. At this point, we will continue to monitor. 3. Malnutrition. We will continue with Clinimix and lipids. We have started her on Megace and see if that can stimulate her appetite. We will continue to monitor. 4. Disposition: We will continue to monitor this patient closely here in the intensive care unit. cc: Ben Roy MD
[2019-03-28] MEDS: LIPOSYN 20% 250 ML IV SCH (11:04)
[2019-03-28] MEDS: MEGACE PO SCH ×2 (12:40→16:39)
[2019-03-28] MEDS: CLINIMIX E 4.25%-5% SOLUTION 1,000 ML IV SCH (12:40)
--- NOTE | 2019-03-28 14:25 | Extremity Venous Study ---
PROCEDURE NAME: Venous U/S Bilateral Legs - 03/26/2019 PROCEDURE: Bilateral lower extremity venous duplex study. DATE OF STUDY: 03/26/2019. REFERRING PHYSICIAN: Clayton. READING PHYSICIAN: Jyothi. INDUSTRIAL INSULATOR: Gloria. INDICATION: Leg swelling. There is comparison study on 02/26/2019. FINDINGS: The deep and superficial veins of both lower extremities were imaged throughout their course. They are compressible, patent and without thrombus. INTERPRETATION: This study is negative for any deep vein thrombosis or saphenous vein thrombosis in either lower extremity, which is consistent with the prior study on 02/26/2019. It should be noted that there was reflux in the right greater saphenous vein on that study and a dedicated reflux study may be of benefit in the future. cc: Ramiro Roe MD
[2019-03-28] MEDS: LOVENOX SUBQ SCH (21:21)
[2019-03-29] MEDS: LEVOPHED 8 MG in D5 1/2 NS 250 ML IV SCH (00:06)
[2019-03-29] MEDS: CLINIMIX E 4.25%-5% SOLUTION 1,000 ML IV SCH ×2 (01:55→14:06)
[2019-03-29] MEDS: NORCO-10 PO SCH ×4 (04:35→21:13)
[2019-03-29 06:37] LABS: BASO# 0.02 X1000 (0.0-0.2); BASO% 0.3 % (0.0-0.8); EOS# 0.14 X1000 (0.0-0.7); EOS% 2.3 % (0.0-10.0); HEMATOCRIT 23.6 % (37.0-47.0); HEMOGLOBIN 8.1 g/dL (12.0-16.0); IMM GRAN# 0.03 X1000 (0.0-0.04); IMM GRAN% 0.5 % (0.0-0.5); LYMPH# 1.48 X1000 (1.2-3.4); LYMPH% 23.9 % (20.5-51.1); MCH 32.9 PG (27-31); MCHC 34.3 g/dL (33-37); MCV 95.9 FL (81-99); MONO% 11.3 % (1.7-9.3); MPV 10.9 FL (7.4-10.4); NEUT# 3.82 X1000 (1.4-6.5); NEUT% 61.7 % (42.2-75.2); PLT 163 X1000 (130-400); RBC 2.46 XMIL (4.2-5.4); RDW 20.5 % (11.5-14.5); WBC 6.19 X1000 (4.8-10.8)
[2019-03-29] MEDS: PRILOSEC PO SCH (06:47)
[2019-03-29 07:11] LABS: AGAP 8; BUN 13 mg/dL (8-22); CALCIUM 7.3 mg/dL (8.8-10.2); CHLORIDE 106 mmol/L (98-107); COSMO 280; CREATININE 0.2 mg/dL (0.5-0.9); ESTIMATED GFR > 60; GLUCOSE 110 mg/dL (70-104); POTASSIUM 3.3 mmol/L (3.5-5.1); SODIUM 140 mmol/L (136-145); TCO2 26 mmol/L (25-35)
[2019-03-29] MEDS: MICRO-K PO SCH ×2 (08:30→21:13)
[2019-03-29] MEDS: MEGACE PO SCH ×3 (08:30→16:56)
[2019-03-29] MEDS: KEPPRA PO SCH ×2 (08:30→21:14)
[2019-03-29] MEDS: LIPOSYN 20% 250 ML IV SCH (11:24)
--- NOTE | 2019-03-29 12:20 | PROGRESS NOTE ---
DATE: 03/29/2019 SUBJECTIVE: Patient is apparently very upset because she was not aware of her current clinical situation regarding the glioblastoma. She does not want to talk to me. As per nursing staff, the patient is still requiring a little bit of Levophed. OBJECTIVE: Vital Signs: Temperature 99.1 degrees, heart rate 86, respiratory 14, blood pressure 97/76, and O2 saturation 100% on room air. General: This is a chronically ill-appearing 64-year- old female looking older than her stated age lying in bed in no acute distress. Cardiovascular: S1 and S2 heard. No murmurs, gallops, or rubs. Regular rate and rhythm. Respiratory: Clear bilaterally to auscultation. No work of breathing or using accessory muscles. Abdomen: Soft. Nontender to palpation. Bowel sounds present. No organomegaly. Extremities: No clubbing, cyanosis, or edema. Peripheral pulses present in both legs. Neurological: Patient is awake and verbal. No focal deficits noted. LABORATORY DATA: Reviewed. ASSESSMENT AND PLAN: 1. Hypotension. The reason it remains is still unclear. The patient is on vasopressors so far. Blood cultures and urine cultures are negative so I do not think there is any infectious SIRS involved in this low blood pressure. Patient reported that she usually has low blood pressure. At this point, we will continue to monitor. We will try to wean off of Levophed today. 2. Glioblastoma multiforme. According to notes from Hematology/Oncology, they recommend hospice. They are not planning to do any further treatment on her. As per nursing staff, apparently, patient wants to go home with hospice. Palliative Care has been consulted. We will inform daughter about opinion from hematology oncology about hospice, and we will go from there. 3. Protein-calorie malnutrition. We will continue with Clinimix and lipids, and also Megace to start improving her appetite. 4. Disposition. We will continue to monitor this patient closely. cc: Ben Roy MD
[2019-03-29] MEDS: LOVENOX SUBQ SCH (21:15)
[2019-03-30] MEDS: CLINIMIX E 4.25%-5% SOLUTION 1,000 ML IV SCH ×3 (01:32→14:31)
[2019-03-30] MEDS: NORCO-10 PO SCH ×3 (06:00→20:27)
[2019-03-30] MEDS: PRILOSEC PO SCH (06:07)
[2019-03-30 06:46] LABS: BASO# 0.01 X1000 (0.0-0.2); BASO% 0.2 % (0.0-0.8); EOS# 0.09 X1000 (0.0-0.7); EOS% 1.6 % (0.0-10.0); HEMATOCRIT 21.3 % (37.0-47.0); HEMOGLOBIN 7.2 g/dL (12.0-16.0); IMM GRAN# 0.03 X1000 (0.0-0.04); IMM GRAN% 0.5 % (0.0-0.5); LYMPH# 1.19 X1000 (1.2-3.4); LYMPH% 20.6 % (20.5-51.1); MCH 32.6 PG (27-31); MCHC 33.8 g/dL (33-37); MCV 96.4 FL (81-99); MONO# 0.74 X1000 (0.11-0.59); MONO% 12.8 % (1.7-9.3); NEUT# 3.72 X1000 (1.4-6.5); NEUT% 64.3 % (42.2-75.2); PLT 142 X1000 (130-400); RBC 2.21 XMIL (4.2-5.4); RDW 20.4 % (11.5-14.5); WBC 5.78 X1000 (4.8-10.8)
[2019-03-30 07:43] LABS: AGAP 8; BUN 17 mg/dL (8-22); CALCIUM 7.9 mg/dL (8.8-10.2); CHLORIDE 105 mmol/L (98-107); COSMO 279; CREATININE 0.2 mg/dL (0.5-0.9); ESTIMATED GFR > 60; GLUCOSE 92 mg/dL (70-104); POTASSIUM 3.7 mmol/L (3.5-5.1); SODIUM 139 mmol/L (136-145); TCO2 26 mmol/L (25-35)
[2019-03-30] MEDS: MICRO-K PO SCH ×2 (08:44→20:30)
[2019-03-30] MEDS: KEPPRA PO SCH ×2 (08:44→20:27)
[2019-03-30] MEDS: MEGACE PO SCH ×3 (08:44→20:27)
--- NOTE | 2019-03-30 10:19 | PROGRESS NOTE ---
DATE: 03/30/2019 SUBJECTIVE: The patient reports feeling fine. Denies any fever or chills. According to nursing staff, the blood sugar has been low. She is not receiving any insulin product, but she is not eating very much despite giving her Megace. OBJECTIVE: Vital Signs: Temperature 99.1 degrees, heart rate 105, respiratory rate 16, blood pressure is 93/57, O2 saturation 100% on 2 L nasal cannula. General: This is a chronically ill- appearing, 64-year-old female looking older than her stated age lying in bed, in no acute distress. Cardiovascular Exam: S1, S2 heard. No murmurs, gallops, or rubs. Regular rate and rhythm. Respiratory Exam: Clear bilaterally to auscultation. No work of breathing or use of accessory muscles. Abdomen: Soft, nontender to palpation. Bowel sounds present. No organomegaly. Extremities: No clubbing, cyanosis, or edema. Peripheral pulses present in both legs. Neurological Exam: Patient is awake and alert. No focal deficits noted. LABORATORY DATA: Reviewed. IMPRESSION AND PLAN: 1. Hypotension. The patient remains borderline low between 80s and 90s, but patient reports that this is her usual blood pressure. We have stopped vasopressors, and blood pressure remains within that range. At this point, I think we will continue to monitor blood pressure every 6 hours. 2. Glioblastoma multiforme. The patient has been recommended to be on hospice as per Hematology/Oncology. Apparently, there is an agreement with [facility] to take care of this patient. I am planning to keep her over the weekend, and I think on Monday if everything is set up, we will send her home with hospice. 3. Protein-calorie malnutrition. We will continue with Clinimix and lipids. We will monitor blood sugars closely. We will continue with Megace. DISPOSITION: We will keep this patient over the weekend, and on Monday we will see if we can send her home with hospice. cc: Ben Roy MD
[2019-03-30] MEDS: LIPOSYN 20% 250 ML IV SCH (11:11)
[2019-03-30] MEDS: LOVENOX SUBQ SCH ×2 (20:27→21:27)
[2019-03-31] MEDS: CLINIMIX E 4.25%-5% SOLUTION 1,000 ML IV SCH ×2 (04:21→16:08)
[2019-03-31] MEDS: NORCO-10 PO SCH ×3 (06:06→21:45)
[2019-03-31] MEDS: PRILOSEC PO SCH (06:07)
[2019-03-31 07:56] LABS: AGAP 8; BUN 14 mg/dL (8-22); CALCIUM 7.8 mg/dL (8.8-10.2); CHLORIDE 102 mmol/L (98-107); COSMO 270; CREATININE 0.3 mg/dL (0.5-0.9); ESTIMATED GFR > 60; GLUCOSE 87 mg/dL (70-104); POTASSIUM 4.2 mmol/L (3.5-5.1); SODIUM 135 mmol/L (136-145); TCO2 25 mmol/L (25-35)
[2019-03-31 08:01] LABS: BASO# 0.02 X1000 (0.0-0.2); BASO% 0.4 % (0.0-0.8); EOS# 0.14 X1000 (0.0-0.7); EOS% 2.9 % (0.0-10.0); HEMATOCRIT 19.9 % (37.0-47.0); HEMOGLOBIN 6.8 g/dL (12.0-16.0); IMM GRAN# 0.02 X1000 (0.0-0.04); IMM GRAN% 0.4 % (0.0-0.5); LYMPH# 0.96 X1000 (1.2-3.4); LYMPH% 20.1 % (20.5-51.1); MCH 33.3 PG (27-31); MCHC 34.2 g/dL (33-37); MCV 97.5 FL (81-99); MONO# 0.64 X1000 (0.11-0.59); MONO% 13.4 % (1.7-9.3); MPV 10.8 FL (7.4-10.4); NEUT% 62.8 % (42.2-75.2); PLT 139 X1000 (130-400); RBC 2.04 XMIL (4.2-5.4); RDW 20.2 % (11.5-14.5); WBC 4.78 X1000 (4.8-10.8)
[2019-03-31] MEDS: MEGACE PO SCH ×3 (09:27→17:02)
[2019-03-31] MEDS: MICRO-K PO SCH ×2 (09:27→21:42)
[2019-03-31] MEDS: KEPPRA PO SCH ×2 (09:27→21:42)
[2019-03-31] MEDS ORDERED: NS 500 ML IV ONE (10:44)
[2019-03-31] MEDS: LIPOSYN 20% 250 ML IV SCH (11:04)
--- NOTE | 2019-03-31 14:06 | PROGRESS NOTE ---
DATE: 03/31/2019 SUBJECTIVE: Patient reports feeling fine. Denies any fever or chills. OBJECTIVE: Vital Signs: Temperature 99.3 degrees, heart rate 74, respiratory rate 18, blood pressure 95/64, O2 saturation 100% on room air. General: This is a chronically ill-appearing, 64- year-old female lying in bed, in no acute distress. Cardiovascular: S1, S2 heard. No murmurs, gallops, or rubs. Regular rate and rhythm. Respiratory: Clear bilaterally to auscultation. No work of breathing or using accessory muscles. Abdomen: Soft, nontender to palpation. Bowel sounds present. No organomegaly. Extremities: No clubbing, cyanosis, or edema. Peripheral pulses present in both legs. Neurological: Patient alert oriented x3. Moves 4 extremities. LABORATORY DATA: Reviewed and hemoglobin 6.5. ASSESSMENT AND PLAN: 1. Hypotension. Blood pressure continues to be between 90s and 100. Sometimes 80s but patient reports having normal low blood pressure. At this point, we will continue to monitor. 2. Glioblastoma multiforme. The patient has been recommended hospice. The patient said that tomorrow we will check with [facility]. If everything is arranged we are going to discharge her. Because of her low hemoglobin I prefer to go ahead and transfuse 1 unit of blood. 3. Protein-calorie malnutrition. We will continue with Clinimix and lipids. Patient encouraged to eat better. She acknowledged understanding. DISPOSITION: If everything is arranged for tomorrow, patient will be discharged with [facility]. cc: Ben Roy MD
[2019-03-31] MEDS: LOVENOX SUBQ SCH (21:42)
[2019-04-01] MEDS: CLINIMIX E 4.25%-5% SOLUTION 1,000 ML IV SCH (03:59)
[2019-04-01] MEDS: PRILOSEC PO SCH (06:39)
[2019-04-01] MEDS: NORCO-10 PO SCH ×2 (06:39→14:08)
[2019-04-01 08:16] LABS: BASO# 0.03 X1000 (0.0-0.2); BASO% 0.7 % (0.0-0.8); EOS# 0.13 X1000 (0.0-0.7); HEMATOCRIT 27.4 % (37.0-47.0); HEMOGLOBIN 9.4 g/dL (12.0-16.0); LYMPH# 1.11 X1000 (1.2-3.4); MCH 32.1 PG (27-31); MCHC 34.3 g/dL (33-37); MCV 93.5 FL (81-99); MONO# 0.71 X1000 (0.11-0.59); MONO% 16.6 % (1.7-9.3); MPV 10.6 FL (7.4-10.4); NEUT# 2.29 X1000 (1.4-6.5); NEUT% 53.7 % (42.2-75.2); PLT 123 X1000 (130-400); RBC 2.93 XMIL (4.2-5.4); RDW 20.1 % (11.5-14.5); WBC 4.27 X1000 (4.8-10.8)
[2019-04-01 08:28] LABS: AGAP 8; BUN 12 mg/dL (8-22); CHLORIDE 105 mmol/L (98-107); COSMO 275; CREATININE 0.3 mg/dL (0.5-0.9); ESTIMATED GFR > 60; GLUCOSE 94 mg/dL (70-104); POTASSIUM 4.4 mmol/L (3.5-5.1); SODIUM 138 mmol/L (136-145); TCO2 25 mmol/L (25-35)
[2019-04-01] MEDS: KEPPRA PO SCH (09:12)
[2019-04-01] MEDS: MICRO-K PO SCH (09:12)
[2019-04-01] MEDS: MEGACE PO SCH ×2 (09:12→14:08)
[2019-04-01] MEDS: LIPOSYN 20% 250 ML IV SCH (11:07)
[2019-04-01 16:19] VITALS: BP 107/82
--- NOTE | 2019-04-01 18:09 | HEMO/ONC PROGRESS NOTE ---
DATE: 04/01/2019 CHIEF COMPLAINT: Not ready to go home. HISTORY OF PRESENT ILLNESS: Ms. Lino complains that she is feeling much better in the hospital and is not ready to go home. Her daughter has reportedly agreed to [facility] and is in the process of setting that up for hopefully discharge early this week. The patient reports she is eating well and her mood is much improved. PHYSICAL EXAMINATION: General: This is a thin, cachectic, chronically ill-appearing woman in no acute distress. She is unaccompanied at the time of consultation. Eyes: Sclerae anicteric. Conjunctivae pale. Cardiovascular: Regular rate and rhythm. Normal S1, S2. No murmurs, rubs, or gallops. Pulmonary: Lungs clear to auscultation bilaterally without wheezes, rales, or rhonchi. GI: Abdomen is soft, nontender, nondistended with normoactive bowel sounds. Extremities: No clubbing, cyanosis, or edema. She has 2+ pulses x4. Neurologic: Alert and oriented x3. Sitting up on side of bed without assistance. Rest of examination normal. Vital Signs: Temperature 98.1 degrees, pulse 106, respiratory rate 19, blood pressure 108/84, O2 saturation 100% on room air. LABS: White count 4.3, hemoglobin 9.4, platelet count 123,000. ASSESSMENT AND PLAN: 1. Glioblastoma: She is not a candidate for treatment given her borderline performance status and significant toxicity from therapy. I have recommended hospice. The patient is agreeable but somewhat hesitant about discharge today. Continue discussion with the patient and her daughter with plans for home hospice upon discharge. 2. Anemia: Disease related. She is status post transfusion. Hemoglobin is up to 9.4 today. Continue to monitor. 3. Thrombocytopenia: Treatment induced. Platelet count is 123,000. Stable. Continue to monitor. cc: Maranda Paris MD
--- NOTE | 2019-04-02 11:57 | DISCHARGE SUMMARY ---
ADMISSION DATE: 03/26/2019 DISCHARGE DATE: 04/01/2019 DISCHARGE DIAGNOSES: 1. Hypotension improved. 2. Glioblastoma multiforme. 3. Malnutrition. CONSULTATIONS: Dr. Maranda Paris from Hematology/Oncology. PROCEDURES: 1. X-ray done on admission showed minimal left lower lobe atelectasis. 2. Head CT done on admission showed 2.3 x 1.8 cm calcified lesion in the left parietal lobe with white matter edema in the left parietal region which has decreased compared with prior with no evidence of hemorrhage. HOSPITAL COURSE: In brief, this is a 61-year-old female with past medical history of glioblastoma multiforme. Apparently, a month ago, she was told that she was not a candidate to continue chemotherapy for her medical conditions. She decided to come to the emergency department because she was feeling lightheaded actually having postural hypotension so she was evaluated in the ER. We were called for admission for that condition. She was placed on vasopressors for rule out any cause of low blood pressure. We have checked blood cultures and urine cultures, and those are negative. The patient reports having low blood pressure normally. Heart is in the range of 90s. We discontinued vasopressors, and the blood pressure was under controlled. She had a really poor appetite that was improving some with Megace. The patient and family agreed to go home with hospice so [facility] has been consulted. Today, I was informed that everything is ready for her so she can go back home with hospice. DISCHARGE PHYSICAL EXAMINATION: Vital Signs: Temperature 98.1 degrees, heart rate 106, respiratory 19, blood pressure 108/84, O2 saturation 100% on room air. General: This is a chronically ill-appearing 64-year-old female lying in bed in no acute distress. Cardiovascular: S1, S2 heard. No murmurs, gallops, or rubs. Regular rate and rhythm. Respiratory: Clear bilaterally to auscultation. No work of breathing or using accessory muscles. Abdomen: Soft. Nontender to palpation. Bowel sounds present. No organomegaly. Extremities: No clubbing, cyanosis, or edema. Peripheral pulses present in both legs. Neurological: The patient is awake and oriented x3. Moves 4 extremities. DISCHARGE DISPOSITION: Home with hospice. LIST OF MEDICATIONS TO BE PROVIDED BY HOSPICE COMPANY: [employer]. TIME SPENT: Time discharging this patient 25 minutes. cc: Ben Roy MD
== END 2019-04-01 18:19 | disposition hospice, home (50) | DRG 312 ==
LOC: ED 10:14 → SUATTDRO 22:15 → ICU 22:15 → 3N 03-30 15:45
PROVIDERS: ATTEND Internal Medicine

== ENCOUNTER 2019-07-28 08:32 | Inpatient (IN) ==
[2019-07-28] MEDS ORDERED: ATIVAN IV ONE ×2 (09:14→09:46)
[2019-07-28] MEDS ORDERED: ATIVAN ONE (09:22)
--- NOTE | 2019-07-28 09:22 | PROVIDER DOCUMENTATION ---
HPI-Neurological Disorder - General Chief Complaint: Altered Mental Status Stated Complaint: AMS Time Seen by Provider: 07/28/19 09:10 Source: family Unable to obtain history due to:: altered Allergies/Adverse Reactions: Patient Allergies Allergy/AdvReac Type Severity Reaction Status Date / Time Penicillins Allergy Severe RASH Verified 07/28/19 09:52 Home Medications: Home Medication List Medication Instructions Recorded Confirmed Last Taken Type Cyanocobalamin (Vitamin B-12) 500 mcg PO DAILY 02/14/19 07/28/19 03/26/19 07:30 History [B-12] Mirtazapine 15 mg PO QHS 02/14/19 07/28/19 03/26/19 07:30 History Multivitamin/Iron/Folic Acid 1 tab PO DAILY 02/14/19 07/28/19 03/26/19 07:30 History [Centrum Women Tablet] Omeprazole 20 mg PO DAILY 02/14/19 07/28/19 03/26/19 07:30 History Dexamethasone 4 mg PO DAILY 07/28/19 07/28/19 Unknown History Hydrocodone/Acetaminophen 1 ea PO Q6H PRN 07/28/19 07/28/19 Unknown History [Hydrocodon-Acetaminophn 10-325] Levetiracetam 2,000 mg PO BID 07/28/19 07/28/19 Unknown History Megestrol Acetate [Megace] 20 mg PO BID 07/28/19 07/28/19 Unknown History - History of Present Illness-Neuro Nature of Presenting Problem: daughter @ bedside. Said was sandeep pool, pt disoriented this am. when she arrived. pt did not know who she was, was having spasmodic jerkling motions. No fever, no med changes known. She does have brain cancer, Saw katty Cookw has nothing further to offer, pt placed on hospice, Hospice nurse says she is DNR Onset/Duration: reports: unsure Timing: reports: still present Review of Systems - Adult - REVIEW OF SYSTEMS - ADULT Constitutional: reports: no symptoms reported Eyes: reports: no symptoms reported Ears, Nose, Mouth & Throat: reports: no symptoms reported Cardiovascular: reports: no symptoms reported Respiratory: reports: no symptoms reported Gastrointestinal: reports: no symptoms reported Genitourinary: reports: no symptoms reported Musculoskeletal: reports: no symptoms reported Integumentary: reports: no symptoms reported Neurological: reports: see HPI Psychiatric: reports: see HPI Endocrine: reports: no symptoms reported Hematologic/Lymphatic: reports: no symptoms reported Allergic/Immunologic: reports: no symptoms reported Past History - Adult - PAST MEDICAL HISTORY-ADULT Review of Records: reports: Medications Reviewed Major Childhood Illnesses: reports: denies history Cardiovascular: reports: HTN Endocrine/Immune: reports: cancer (glioblastoma breast cancer), thyroid disorder Other Conditions: reports: other cancer (brain) - PRIOR SURGERIES/PROCEDURES Surgical/Procedure History: reports: appendectomy, cholecystectomy, hysterectomy - IMMUNIZATION STATUS Childhood Immunizations: See Nurse Assessment Flu Vaccine: See Nurse Assessment - FAMILY HISTORY Family History: reviewed, not pertinent Physical Exam- Neurological - Physical Exam-Neuro Initial Vital Signs Reviewed: Yes General Appearance: moderate distress, obtunded, other (having spasmodic jerks to body, extremities. no obeying commands. eyes go from midline to R gaze.) Eye Exam: bilateral eye: PERRL, EOMI (not testable) HENMT: normocephalic/atraumatic, moist mucous membranes, normal ENT inspection Neck: full range of motion, supple, normal inspection Respiratory: lungs clear, normal breath sounds Cardiovascular: regular rate, rhythm, tachycardia Abdominal Exam: non tender, soft Peripheral Pulses: radial (R): 2+ Extremity: normal inspection, other (spasmodic jerks) terrapin fisher Exam: other (not testable) Coordination/Gait: other (not testable) Neurologic: other (not testable) Integumentary: normal color, normal turgor, warm/dry Progress - PLAN OF CARE/RESULTS Progress/Plan/Lab Results: Vital Signs - 8 hr 07/28/19 09:03 Temperature 99.4 F Pulse Rate 113 H Respiratory Rate 41 H Blood Pressure 185/117 O2 Sat by Pulse Oximetry 97 Laboratory Results - last 24 hr 07/28/19 07/28/19 07/28/19 09:00 09:00 09:00 WBC 10.09 RBC 3.57 L Hgb 12.3 Hct 39.7 MCV 111.2 H MCH 34.5 H MCHC 31.0 L RDW Std Deviation 14.6 H Plt Count 164 MPV 10.2 Immature Gran % (Auto) 1.6 H Neut % (Auto) 78.8 H Lymph % (Auto) 13.3 L Yell % (Auto) 5.6 Eos % (Auto) 0.5 Baso % (Auto) 0.2 Immature Gran # (Auto) 0.16 H Neut # (Auto) 7.96 H Lymph # (Auto) 1.34 Yell # (Auto) 0.56 Eos # (Auto) 0.05 Baso # (Auto) 0.02 PT 12.9 INR 0.96 PTT (Actin FS) 23.3 Specimen Type Sample Site pH pCO2 pO2 HCO3 Base Excess Oxyhemoglobin ABG O2 Sat (Calculated) ABG O2 Saturation ABG Carboxyhemoglobin ABG Methemoglobin Kenroy Test A-a O2 Difference Total Hemoglobin Lactate Blood Gas Modality FiO2 % Sodium 144 Potassium 3.5 Chloride 104 Carbon Dioxide 27 Anion Gap 13 BUN 23 H Creatinine 0.6 Estimated GFR/1.73 m2 > 60 BUN/Creatinine Ratio 38 Glucose 95 Calculated Osmolality 290 Calcium 8.8 Magnesium 1.8 Total Bilirubin 0.41 AST 25 ALT 15 Alkaline Phosphatase 62 Creatine Kinase 33 Troponin T High Sens Total Protein 6.2 L Albumin 3.5 Globulin 2.7 Albumin/Globulin Ratio 1.3 Plasma Lactate Urine Source Urine Color Urine Turbidity Urine pH Ur Specific New Site Urine Protein Ur Glucose (Stick) Ur Ketones (Stick) Urine Blood Urine Nitrite Urine Bilirubin Urobilinogen Dipstick Urine Leukocytes Urine WBC (Auto) Urine RBC (Auto) U Epithel Cells (Auto) Urine Bacteria (Auto) 07/28/19 07/28/19 07/28/19 09:00 09:00 09:26 WBC RBC Hgb Hct MCV MCH MCHC RDW Std Deviation Plt Count MPV Immature Gran % (Auto) Neut % (Auto) Lymph % (Auto) Yell % (Auto) Eos % (Auto) Baso % (Auto) Immature Gran # (Auto) Neut # (Auto) Lymph # (Auto) Yell # (Auto) Eos # (Auto) Baso # (Auto) PT INR PTT (Actin FS) Specimen Type ARTERIAL Sample Site R BRACHIAL pH 7.39 pCO2 39 pO2 50 L HCO3 23.7 Base Excess -1.2 Oxyhemoglobin 84.6 L* ABG O2 Sat (Calculated) 14.7 L ABG O2 Saturation 87.3 L ABG Carboxyhemoglobin 2.40 ABG Methemoglobin 0.8 Kenroy Test NO A-a O2 Difference 51.0 Total Hemoglobin 12.4 Lactate 4.30 H* Blood Gas Modality ROOM AIR FiO2 % 21.0 Sodium Potassium Chloride Carbon Dioxide Anion Gap BUN Creatinine Estimated GFR/1.73 m2 BUN/Creatinine Ratio Glucose Calculated Osmolality Calcium Magnesium Total Bilirubin AST ALT Alkaline Phosphatase Creatine Kinase Troponin T High Sens 13 Total Protein Albumin Globulin Albumin/Globulin Ratio Plasma Lactate 1.8 Urine Source Urine Color Urine Turbidity Urine pH Ur Specific New Site Urine Protein Ur Glucose (Stick) Ur Ketones (Stick) Urine Blood Urine Nitrite Urine Bilirubin Urobilinogen Dipstick Urine Leukocytes Urine WBC (Auto) Urine RBC (Auto) U Epithel Cells (Auto) Urine Bacteria (Auto) 07/28/19 07/28/19 11:33 12:10 WBC RBC Hgb Hct MCV MCH MCHC RDW Std Deviation Plt Count MPV Immature Gran % (Auto) Neut % (Auto) Lymph % (Auto) Yell % (Auto) Eos % (Auto) Baso % (Auto) Immature Gran # (Auto) Neut # (Auto) Lymph # (Auto) Yell # (Auto) Eos # (Auto) Baso # (Auto) PT INR PTT (Actin FS) Specimen Type Sample Site pH pCO2 pO2 HCO3 Base Excess Oxyhemoglobin ABG O2 Sat (Calculated) ABG O2 Saturation ABG Carboxyhemoglobin ABG Methemoglobin Kenroy Test A-a O2 Difference Total Hemoglobin Lactate Blood Gas Modality FiO2 % Sodium Potassium Chloride Carbon Dioxide Anion Gap BUN Creatinine Estimated GFR/1.73 m2 BUN/Creatinine Ratio Glucose Calculated Osmolality Calcium Magnesium Total Bilirubin AST ALT Alkaline Phosphatase Creatine Kinase Troponin T High Sens Total Protein Albumin Globulin Albumin/Globulin Ratio Plasma Lactate 1.3 Urine Source CATH Urine Color YELLOW Urine Turbidity CLEAR Urine pH 6.5 Ur Specific New Site 1.018 Urine Protein NEGATIVE Ur Glucose (Stick) NEGATIVE Ur Ketones (Stick) NEGATIVE Urine Blood NEGATIVE Urine Nitrite NEGATIVE Urine Bilirubin NEGATIVE Urobilinogen Dipstick 3 A Urine Leukocytes MODERATE A Urine WBC (Auto) 10-20 A Urine RBC (Auto) <10 U Epithel Cells (Auto) <10 Urine Bacteria (Auto) 4+ Orders Category Date Time Status Cardiac Monitoring DIRECTED Care 07/28/19 09:09 Active IV Insertion ORDERED Care 07/28/19 09:09 Completed Notify MD of + Sepsis Screen NOW Care 07/28/19 09:09 Active Notify Physician As Ordered Care 07/28/19 09:09 Active Resuscitation Status Routine Care 07/28/19 14:51 Ordered CHEST-1 VIEW [RAD] Stat Exams 07/28/19 09:[address] HEAD W/O CONTRAST [CT] Stat Exams 07/28/19 10:21 Completed ABG [RESP] Routine Lab 07/28/19 09:26 Completed BLOOD CULTURE [BLDCUL] Stat Lab 07/28/19 11:33 Results CBC WITH DIFF [HEME] Stat Lab 07/28/19 09:00 Completed CK PROFILE [SP CHEM] Stat Lab 07/28/19 09:00 Completed COMPREHENSIVE METABOLIC PANEL [CHEM] Stat Lab 07/28/19 09:00 Completed KEPPRA [JACK] Stat Lab 07/28/19 09:00 Received LACTATE, PLASMA [CHEM] Lab 07/28/19 09:00 Completed LACTATE, PLASMA [CHEM] Lab 07/28/19 11:33 Completed LACTATE, PLASMA [CHEM] Lab 07/28/19 15:15 Uncollected MAGNESIUM [CHEM] Stat Lab 07/28/19 09:00 Completed PROTIME WITH INR [COAG] Stat Lab 07/28/19 09:00 Completed PTT [COAG] Stat Lab 07/28/19 09:00 Completed TROPONIN T HIGH SENSITIVITY Stat Lab 07/28/19 09:00 Completed URINALYSIS W/POSS RFLX CULT [URINALYSIS] Stat Lab 07/28/19 12:10 Completed URINE CULTURE [RM] Routine Lab 07/28/19 12:10 Received Dextrose 5%-0.9% NaCl Inj [D5 Ns] 1,000 ml Med 07/28/19 14:02 Discontinued IV 100 mls/hr Dextrose 5%-0.9% NaCl Inj [D5 Ns] 1,000 ml Med 07/28/19 14:05 Active IV 200 mls/hr Lorazepam [Ativan] Med 07/28/19 09:14 Discontinued 1 mg IV NOW ONE Lorazepam [Ativan] Med 07/28/19 09:46 Discontinued 1 mg IV NOW ONE Lorazepam [Ativan] Med 07/28/19 15:17 Ordered 1 mg IV Q4H PRN PRN Lorazepam [Ativan] Med 07/28/19 09:22 Discontinued 2 mg .ROUTE .STK-MED ONE Oxygen Device Stat Oth 07/28/19 09:09 Active Transfer/Admit Order [TRANSFER] Routine Transfer 07/28/19 14:50 Ordered Result Diagrams: 07/28/19 09:00 07/28/19 09:00 - REASSESSMENT Reassessment #1 Time Reassessed: 12:42 (pt is awake, but nonverbal) Status: improving Reassessment #2 Time Reassessed: 15:19 (Dr Vazquez has been down again to see her. Available family unable to care for her, will admit) Status: unchanged - EKG 1 Time of EKG reading by physician:: 09:36 EKG Read and Signed by:: Bradley Taylor EKG Interpretation (*Must complete 3 of following elements*): Abnormal Rate: 132 Rhythm: sinus tach QRS: normal ST Wave: non-specific ST changes Comments: poss LAE - CONSULTS/PCP/HOSPITALIST Notification #1 *Consult/PCP/Hospitalist*: Taylor Time Discussed: 14:30 Consult Disposition: Will see in ED Departure - Departure Date of Disposition Decision: 07/28/19 Time of Disposition Decision: 15:19 DIAGNOSIS: Glioblastoma Altered mental status Qualifiers: Altered mental status type: disorientation Qualified Code(s): R41.0 - Disorientation, unspecified Disposition: ADMITTED INPATIENT 09 Certified Medical Emergency: Emergent Condition: Fair Referrals and Follow-Ups: None,PCP [Primary Care Provider] - - Critical Care Note This patient required my direct & personal management of CC.: No Attestation - Physician/ GAYATRI Attestation Patient care was provided by Advanced Practice Provider:: No The physician spent face to face time with patient:: Yes Advanced Practice Provider documentation review:: Supervising physician onsite and consulted in the evaluation and care of this patient. The physician did have a face to face encounter with the patient.
[2019-07-28 09:32] LABS: BASO# 0.02 X1000 (0.0-0.2); BASO% 0.2 % (0.0-0.8); EOS# 0.05 X1000 (0.0-0.7); EOS% 0.5 % (0.0-10.0); HEMATOCRIT 39.7 % (37.0-47.0); HEMOGLOBIN 12.3 g/dL (12.0-16.0); IMM GRAN# 0.16 X1000 (0.0-0.04); IMM GRAN% 1.6 % (0.0-0.5); LYMPH# 1.34 X1000 (1.2-3.4); LYMPH% 13.3 % (20.5-51.1); MCH 34.5 PG (27-31); MCV 111.2 FL (81-99); MONO# 0.56 X1000 (0.11-0.59); MONO% 5.6 % (1.7-9.3); MPV 10.2 FL (7.4-10.4); NEUT# 7.96 X1000 (1.4-6.5); NEUT% 78.8 % (42.2-75.2); PLT 164 X1000 (130-400); RBC 3.57 XMIL (4.2-5.4); RDW 14.6 % (11.5-14.5); WBC 10.09 X1000 (4.8-10.8)
[2019-07-28 09:35] LABS: ALLEN TEST NO; BE -1.2 mmoll (-3.0-3.0); BLOOD TYPE ARTERIAL; HCO3-(ACT) 23.7 mmoll (20.0-26.0); METHB 0.8 % (0.0-1.5); O2(CT) 14.7 mL/dL (15.0-23.0); PCO2(98.6) 39 mmHg (35-45); PO2(98.6) 50 mmHg (60-100); SAMPLE BLOOD; SAO2 87.3 % (95.0-100.0); THB 12.4 g/dL (11.5-17.4); pH(98.6) 7.39 (7.35-7.45)
[2019-07-28 09:36] LABS: MODALITY ROOM AIR
[2019-07-28 09:37] LABS: O2HB 84.6 % (95.0-99.0)
[2019-07-28 09:38] LABS: INR 0.96; PROTIME 12.9 Seconds (11.0-16.0)
[2019-07-28 09:39] LABS: PTT 23.3 Seconds (22.3-41.8)
[2019-07-28 10:07] LABS: AGAP 13; ALB/GLOB RATIO 1.3; ALBUMIN 3.5 g/dL (3.5-5.0); ALKALINE PHOSPHATASE 62 U/L (32-104); BUN 23 mg/dL (8-22); CALCIUM 8.8 mg/dL (8.8-10.2); CHLORIDE 104 mmol/L (98-107); CK PROFILE 33 U/L (24-173); COSMO 290; CREATININE 0.6 mg/dL (0.5-0.9); ESTIMATED GFR > 60; GLUCOSE 95 mg/dL (70-104); GOT 25 U/L (10-30); GPT 15 U/L (10-36); MAGNESIUM 1.8 mg/dL (1.5-2.7); POTASSIUM 3.5 mmol/L (3.5-5.1); SODIUM 144 mmol/L (136-145); TCO2 27 mmol/L (25-35); TOTAL BILIRUBIN 0.41 mg/dL (0.20-1.00); TOTAL PROTEIN 6.2 g/dL (6.3-8.3)
--- NOTE | 2019-07-28 10:29 | Diag Imaging Result Doc PS360 ---
EXAM: CHEST-1 VIEW HISTORY: sepsis protocol TECHNIQUE: Single view COMPARISON: 03/26/2019 FINDINGS: Poor inspiratory effort. The heart is mildly prominent and there is mild vascular distention. No consolidation. No pleural effusions identified. IMPRESSION: Increased interstitial markings believed to be pulmonary edema Electronically signed by Milo Galo 07/28/2019 10:27 AM
--- NOTE | 2019-07-28 10:49 | Diag Imaging Result Doc PS360 ---
EXAM: CT HEAD W/O CONTRAST HISTORY: STATUS EPILTICUS, HX OF BRAIN CANCER TECHNIQUE: CT head without intravenous contrast COMPARISON: 03/26/2019 FINDINGS: There are postsurgical changes on the left. There is a partially calcified left parietal mass measuring at least 1.6 x 3.1 cm. This is slightly larger than on the prior exam. There is surrounding edema. No midline shift. No other brain mass. No epidural or subdural hematoma. No subarachnoid hemorrhage. IMPRESSION: Very slight increase in the size of the left parietal mass This exam was performed using automated exposure control, adjustment of mA or kV according to patient size, and/or use of iterative reconstruction technique. Electronically signed by Milo Galo 07/28/2019 10:47 AM
[2019-07-28 12:13] LABS: URINE SOURCE CATH
[2019-07-28 12:16] LABS: BILIRUBIN URINE NEGATIVE (NEGATIVE); BLOOD URINE NEGATIVE (NEGATIVE); COLOR YELLOW; GLUCOSE URINE NEGATIVE (NEGATIVE); KETONE URINE NEGATIVE (NEGATIVE); LEUKOCYTES URINE MODERATE (NEGATIVE); NITRITE URINE NEGATIVE (NEGATIVE); PH URINE 6.5; PROTEIN URINE NEGATIVE (NEGATIVE); SP GRAVITY URINE 1.018; TURBIDITY URINE CLEAR (CLEAR); UROBILINOGEN URINE 3 mg/dL (NORMAL)
[2019-07-28 12:18] LABS: UR EPITHELIAL CELLS <10 /HPF (<10); URINE BACTERIA 4+ /HPF; URINE RBC <10 /HPF (<10)
[2019-07-28] MEDS ORDERED: D5 NS 1,000 ML IV ONE ×2 (14:02→14:05)
[2019-07-28] MEDS ORDERED: ATIVAN IM ONE (15:18)
[2019-07-28] MEDS: ATIVAN IV PRN ×2 (15:23→21:44)
[2019-07-28] MEDS ORDERED: STERILE WATER INJ. INJ ONE (16:55)
[2019-07-28] MEDS ORDERED: GEODON IM ONE (16:55)
--- NOTE | 2019-07-28 18:34 | CONSULTATION ---
DATE OF CONSULTATION: 07/28/2019 CHIEF COMPLAINT: Altered mental status. HISTORY OF PRESENT ILLNESS: This is a 64-year-old female with a past medical history of glioblastoma multiforme. She was discharged on 04/01/2019 home with hospice. She is not going to get more treatment by Hematology/Oncology Department. Apparently she had a sudden change of her mental status today. The daughter who is at the bedside provided all of the information. Apparently, she was called over to see her mother today in the morning because she was behaving differently and the mother was disoriented, not following commands, and when she arrived, she was having some spasmodic jerking motions. No fever. When I evaluated this patient in the emergency department, she was laying in bed. She was not following commands. She was moving both of her hands spontaneously. She was not able to follow or track the practitioner. Her right eye is deviated medially. Physical exam showed an old scar on the left parietal area without signs of infection. The right eye deviated medially, protein calorie malnutrition, some crepitus at the bases. I had an extensive conversation with the daughter who is at the bedside and actually we stepped out of the room so we could talk about the patient. It is listed on her home medications that she has been on Keppra. Probably, she has an episode of seizures and this is going to be common for this patient given her glioblastoma multiforme. I will give her a little bit of fluids, but I do not think this patient needs to be hospitalized. I do not think we are going to provide any new treatment for her. I called the criminal justice social worker to find out if hospice can take care of her again. If that is the case, I will discharge this patient from the emergency department. If not, I will go ahead and admit the patient and I will consult hospice again in the morning and/or today if possible so they can do all the documentation and send her home as soon as we can. I told the daughter that she is going to have a lot of changes because of the aggressiveness of the glioblastoma multiforme per se. She seems to understand and this is something that probably is going to happen multiple times. I am not quite sure if she is going to recover from this episode. I do not know if she is going to be able to eat by herself again or drink again. All of this has been explained to the daughter who is at the bedside. Again, this is an end-stage disease and likely we are going to expect more of these episodes in the future. She seems to understand. We will wait for the criminal justice social worker to call hospice and let me know what is going to be the next step. PHYSICAL EXAMINATION: Vital signs: Temperature 99.4 degrees, pulse 113, respiratory rate 20, blood pressure 145/90, again on the monitor. Oxygen saturation 97% on room air. HEENT: Head normocephalic. No new trauma. She has a scar on the left parietal area which is old. PERRLA. Left eye deviated medially. Neck: Supple. No JVD. Central trachea. Chest: Clear to auscultation. Some crepitus at the bases. Abdomen: Soft. Extremities: No edema. No clubbing. Neurological: This patient is not following commands. She is awake. Her eyes are open and she is only moving her hands slowly. Neurologic: Examination is limited because of her mental status changes. LABORATORY: WBC 10, hemoglobin 12.3, hematocrit 39.7, platelets 164,000. Sodium 144, potassium 3.5, chloride 104, bicarbonate 27, BUN 23, creatinine 0.6, glucose 95, calcium 8.8, magnesium 1.8. AST 25, ALT 15, alkaline phosphatase 62, albumin 3.5. CT scan of the head showed a very slight increase in the size of the left parietal mass. ASSESSMENT AND PLAN: 1. Altered mental status with possible seizures. This is expected in these kind of patients and actually it looks like at home based on her home medications she is on Keppra. I believe it is limited what we can do here given her current condition and advanced disease. She is not going to be treated by Hematology/Oncology Department and actually she has been on hospice now. I tried to educate the daughter who is at the bedside about her whole situation and I told her to expect sometimes some seizures and probably bleeding and some mental status changes. 2. Protein calorie malnutrition. Aware. 3. Glioblastoma multiforme. This has been followed before by Hematology/Oncology Department, Dr. Paris, but this patient currently is not getting any kind of treatment. She has been placed on hospice. Probably this patient will go home if hospice can accept the patient again. If that is not the case, we will admit the patient and we will set up hospice again. cc: Enoch Courtney MD
[2019-07-28] MEDS ORDERED: GEODON IM PRN (18:35)
[2019-07-28] MEDS ORDERED: STERILE WATER INJ. INJ PRN (18:35)
[2019-07-28 19:59] LABS: URINE SOURCE CATH
[2019-07-28 20:07] LABS: BILIRUBIN URINE NEGATIVE (NEGATIVE); BLOOD URINE NEGATIVE (NEGATIVE); COLOR YELLOW; GLUCOSE URINE NEGATIVE (NEGATIVE); KETONE URINE NEGATIVE (NEGATIVE); LEUKOCYTES URINE SMALL (NEGATIVE); NITRITE URINE NEGATIVE (NEGATIVE); PH URINE 6.5; PROTEIN URINE NEGATIVE (NEGATIVE); SP GRAVITY URINE 1.014; TURBIDITY URINE HAZY (CLEAR); UROBILINOGEN URINE 2 mg/dL (NORMAL)
[2019-07-28 20:10] LABS: UR EPITHELIAL CELLS <10 /HPF (<10); URINE BACTERIA 4+ /HPF; URINE RBC <10 /HPF (<10); URINE WBC 20-40 /HPF (<10)
[2019-07-28 20:20] LABS: URINE CASTS NONE SEEN; URINE CRYSTALS CA OXALATE PRESENT; URINE SMALL ROUND CELLS TRANS PRESENT; URINE YEAST NONE SEEN
[2019-07-28] MEDS: KEPPRA 2,000 MG in NS 100 ML IV SCH (21:05)
[2019-07-28] MEDS: PEPCID IV SCH (23:20)
--- NOTE | 2019-07-29 04:07 | HISTORY AND PHYSICAL ---
REASON FOR ADMISSION: Altered mental status, possible seizure. HISTORY OF PRESENT ILLNESS: The patient is a 64-year-old female with a past medical history of hypertension, hypothyroidism, prior CVA and glioblastoma multiforme, and actually she is on hospice. Apparently today in the morning her daughter was called because the patient was disoriented. When she arrived to place, the patient did not know who she was and was having some jerking movements, possible seizures. Like I mentioned before she has a history of brain cancer and she is on hospice right now, so this kind of condition is expected for this kind of patient, and actually I can see that this patient is on Keppra at home. When I talked to the daughter about sending this patient back home with hospice she states that she cannot take care of her because she needs some help. So what we are going to do is we are going to keep this patient in the hospital and I talk to a social services manager to try to help this patient out. At the time of my examination she was disoriented and agitated. PHYSICAL EXAMINATION: VITAL SIGNS: Temperature 97.7 degrees, pulse 93, respiratory rate 16, blood pressure 146/98, oxygen saturation 95% on 2 L of nasal cannula. HEENT: Head is normocephalic. She has a scar at the level of the left parietal area and right eye deviation internally. CHEST: Clear to auscultation, some crepitus at the bases. ABDOMEN: Soft. EXTREMITIES: No edema, no clubbing, no cyanosis. NEUROLOGICAL: The patient is agitated. She is not following commands. LABORATORY DATA: WBC 10, hemoglobin 12.3, hematocrit 39.7, platelets 164,000. Sodium 144, potassium 3.5, chloride 104, bicarbonate 37, BUN 23, creatinine 0.6, glucose 95, calcium 8.8, magnesium 1.8. REVIEW OF SYSTEMS: All 14-points of the review of review of systems were reviewed and all of them negative except past medical history of glioblastoma multiform on hospice, hypertension, hypothyroidism, history of CVA. FAMILY HISTORY: Mother with cancer, type unknown and also diabetes. SOCIAL HISTORY: Apparently she lives with her boyfriend. No smoking, drinking or drugs. PAST SURGICAL HISTORY: Appendectomy, cholecystectomy, hysterectomy, and craniotomy but I do not have the details. ASSESSMENT AND PLAN: 1. Altered mental status likely due to the possibility of seizure disorder due to glioblastoma multiform. Aware. Continue with home medications. We will try to stabilize this patient so she can go back with hospice, but the daughter cannot take care of her because she is by herself now. 2. GBM. On hospice. Continue to monitor. 3. Malnutrition. We will try to continue with a diet, but she is altered at this moment, lets see hoe she does during the night. 4. Agitation. Continue with p.r.n. Ativan or Geodon. cc: Enoch Courtney MD
--- NOTE | 2019-07-29 07:46 | EKG Report ---
Test Performed on : 07/28/2019 09:32:38 AM Test Reason : ED. NO EKG ORDER FOR MUSE Blood Pressure : / mmHG Vent. Rate : 132 BPM Atrial Rate : 132 BPM P-R Int : 116 ms QRS Dur : 082 ms QT Int : 318 ms P-R-T Axes : 053 061 092 degrees QTc Int : 471 ms Sinus tachycardia. Possible Left atrial enlargement Nonspecific ST and T wave abnormality Abnormal ECG When compared with ECG of 26-MAR-2019 10:42, T wave amplitude has increased in Anterior leads Unconfirmed Result
--- NOTE | 2019-07-29 08:42 | PROGRESS NOTE ---
DATE: 07/29/2019 SUBJECTIVE: The patient is resting comfortably in bed. She is not answering my questions, but she is following commands on and off. She has been placed on restraints because of severe agitation. She seems to be stable at this moment. PHYSICAL EXAMINATION: Vital Sign: Temperature 98 degrees, pulse 121, respiratory rate 17, blood pressure 137/88, oxygen saturation 98 on room air. HEENT: Head normocephalic. She has a scar at the level of the parietal area on the left side. Right eye deviation internally. Chest: Clear to auscultation. Abdomen: Soft. Extremities: No edema, no clubbing, no cyanosis. Neurological: This patient is resting comfortably in bed. She is not talking to me when I ask questions, but she is following commands on and off. She was able to squeeze my hand and open her mouth. LABORATORY DATA: No lab work done today. ASSESSMENT AND PLAN: 1. Altered mental status, likely due to a possible seizure disorder due to glioblastoma multiform. Aware. Will continue with her home medications. We will try to stabilize this patient so she can go back home with hospice, but it looks like the daughter cannot take care of her at this moment. 2. Glioblastoma multiforme. She has been placed on hospice. Continue to monitor. 3. Malnutrition. Continue with her diet. 4. Agitation. Continue with Geodon. I will place a consult for the social media manager to evaluate this patient. The problem at this moment is that her daughter cannot take care of her. As per the daughter, she is asking for some family members to help her out so she can take her mom back home. cc: Enoch Courtney MD
[2019-07-29] MEDS: DECADRON IV SCH (09:18)
[2019-07-29] MEDS: KEPPRA 2,000 MG in NS 100 ML IV SCH ×2 (09:18→21:39)
[2019-07-29] MEDS: ATIVAN IV PRN ×2 (09:21→13:26)
[2019-07-29] MEDS: PEPCID IV SCH ×2 (12:32→22:25)
[2019-07-29] MEDS ORDERED: VANCOMYCIN IV PER PHARMACY MISC SCH (15:00)
[2019-07-29] MEDS: VANCOMYCIN 1 GM/NS 1 GM/250 ML IVPB IV SCH (18:22)
[2019-07-30] MEDS: ATIVAN IV PRN ×2 (05:56→13:50)
[2019-07-30 05:57] LABS: AGAP 12; BUN 21 mg/dL (8-22); CALCIUM 9.5 mg/dL (8.8-10.2); CHLORIDE 102 mmol/L (98-107); COSMO 282; CREATININE 0.6 mg/dL (0.5-0.9); ESTIMATED GFR > 60; GLUCOSE 85 mg/dL (70-104); POTASSIUM 3.6 mmol/L (3.5-5.1); SODIUM 140 mmol/L (136-145); TCO2 26 mmol/L (25-35)
[2019-07-30] MEDS: KEPPRA 2,000 MG in NS 100 ML IV SCH ×2 (09:59→20:40)
[2019-07-30] MEDS: DECADRON IV SCH (09:59)
[2019-07-30] MEDS: CLINIMIX E 4.25%-5% SOLUTION 1,000 ML IV SCH ×2 (10:00→20:40)
[2019-07-30] MEDS: PEPCID IV SCH (11:58)
[2019-07-30] MEDS: SODIUM CHLORIDE 0.9% INJ SCH (11:58)
--- NOTE | 2019-07-30 12:35 | PROGRESS NOTE ---
DATE: 07/30/2019 SUBJECTIVE: The patient is resting comfortably in bed. She has not been talking to me, but she started talking to the family, but I do not think she is making sense. She is not following commands for me. She has a positive culture that showed gram-positive cocci and she has been placed on vancomycin. I will put her on Clinimix today. I will stop telemetry and I will repeat the blood cultures, palliative care team evaluated this patient and they already had a conversation with the family, I believe it is going to take a couple days to decide further management, they want to take this patient to another state [place] another state to take care of her, but she has been on hospice here, it is going to be really hard for the patient to be transported. Hospice will be on board. I will continue with the same management for now. I will ask for a swallow evaluation. OBJECTIVE: Vital Signs: Temperature 97.7 degrees, pulse 110, respiratory rate 18, blood pressure 113/74, oxygen saturation 94% on room air. HEENT: Head normocephalic. No new trauma. She has a scar at the level of the left parietal area. Right eye deviation internally. Chest: Clear to auscultation. Abdomen: Soft. Extremities: No clubbing, no cyanosis. Neurological: This patient is resting comfortably in bed. I do not see any signs of pain, she is not following commands for me but she is talking, especially to the family. LABORATORY: Sodium 140, potassium 3.6, chloride 102, bicarbonate 26, BUN 21, creatinine 0.6, glucose 85, calcium 8.5. ASSESSMENT AND PLAN: 1. Altered mental status, likely due to possible seizure disorder, due to glioblastoma multiform, aware. We will continue with her medications. We will try to stabilize this patient first before she can go back home with hospice. We have been talking to the family about her discharge, but they want to take this patient to another state. Palliative Care on board and they are requesting hospice evaluation again. I will wait for further recommendations. 2. Gram-positive cocci bacteremia. She has been placed on vancomycin. I will wait for the final result. I repeated the blood culture today. 3. Glioblastoma multiform, she has been placed on hospice. Continue to monitor. 4. Malnutrition. She has been placed on some ice chips, but it looks like she did well with a swallow evaluation and she was placed on a mechanical soft diet. 5. Agitation, continue with Geodon and/or Ativan. Palliative care on board. Hospice will evaluate this patient. The family wants to take this patient to another state to take care of her. cc: Enoch Courtney MD
[2019-07-30] MEDS: VANCOMYCIN 1 GM/NS 1 GM/250 ML IVPB IV SCH (16:22)
[2019-07-31] MEDS: PEPCID IV SCH ×2 (01:21→10:06)
[2019-07-31] MEDS: ATIVAN IV PRN ×3 (02:10→22:24)
[2019-07-31] MEDS: CLINIMIX E 4.25%-5% SOLUTION 1,000 ML IV SCH ×2 (05:26→15:40)
[2019-07-31 05:29] LABS: HEMATOCRIT 32.3 % (37.0-47.0); HEMOGLOBIN 10.5 g/dL (12.0-16.0); MCH 35.7 PG (27-31); MCHC 32.5 g/dL (33-37); MCV 109.9 FL (81-99); MPV 10.4 FL (7.4-10.4); RBC 2.94 XMIL (4.2-5.4); WBC 9.17 X1000 (4.8-10.8)
[2019-07-31 05:36] LABS: AGAP 9; BUN 26 mg/dL (8-22); CALCIUM 8.4 mg/dL (8.8-10.2); CHLORIDE 102 mmol/L (98-107); COSMO 280; CREATININE 0.5 mg/dL (0.5-0.9); ESTIMATED GFR > 60; GLUCOSE 119 mg/dL (70-104); POTASSIUM 3.9 mmol/L (3.5-5.1); SODIUM 137 mmol/L (136-145); TCO2 26 mmol/L (25-35)
[2019-07-31] MEDS: DECADRON IV SCH (10:06)
[2019-07-31] MEDS: KEPPRA 2,000 MG in NS 100 ML IV SCH ×2 (10:06→22:23)
[2019-07-31] MEDS: SODIUM CHLORIDE 0.9% INJ SCH (10:06)
--- NOTE | 2019-07-31 10:29 | PROGRESS NOTE ---
DATE: 07/31/2019 SUBJECTIVE: The patient is resting comfortably in bed, and actually she is sleeping. It looks like she is tolerating p.o. She has been receiving a couple doses of Ativan due to some agitation. I will continue with the same management for now. Palliative Care team working with the family about placement. This patient initially was at home with hospice due to a glioblastoma multiforme, and it looks like she presented here with mental status changes, apparently a seizure disorder. In the emergency department, they did a blood culture that showed strep mutans. Case has been discussed briefly with Infectious Disease Department. Since this patient is going to be with hospice, I do not think the possibility of IV treatment is going to be on the table. We cannot put this patient on penicillins by mouth because she is allergic to penicillins. We will avoid levofloxacin because this patient came in with a seizure, and now I believe we will put this patient on clindamycin 300 mg p.o. every 8 hours for 14 days. I will try to discuss this with the family today. OBJECTIVE: Vital Signs: Temperature 97.5 degrees, pulse 76, respiratory rate 16, blood pressure 124/88, oxygen saturation 93. HEENT: Head normocephalic. No new trauma. She has a scar at the level of the left parietal area. Right eye deviation internally. Chest: Clear to auscultation. Maybe some crepitus at the bases. Abdomen: Soft. Extremities: No edema, no clubbing, no cyanosis. Neurological: At this moment, this patient is sleeping and resting comfortably in bed. She has been having agitation on and off, but she is tolerating p.o. I do not see any family member at the bedside at this moment. LABORATORY DATA: WBC 9.1, hemoglobin 10.5, hematocrit 32.3, platelets 152,000. Sodium 137, potassium 3.9, chloride 102, bicarbonate 26, BUN 26, creatinine 0.6, glucose 119, calcium 8.4. ASSESSMENT AND PLAN: 1. Altered mental status, probably seizure disorder at home due to glioblastoma multiforme likely. We will continue with her medications. We are stabilizing this patient first so she can go home with hospice, but there is a possibility of going to [place] with some family members, especially her son. 2. Streptococcus mutans bacteremia. Unfortunately, she has 2/2 blood cultures that are positive. Given her circumstances, I do not think she is a good candidate for a peripherally-inserted central catheter line and intravenous treatment. Like I mentioned before, she is a hospice patient, but I will try to discuss this with the family. There is an option of oral treatment since this bacteria is pansensitive. We need to avoid penicillin VK because she has an allergic reaction to that. We are not going to give her levofloxacin because of seizures, and we will try clindamycin 300 mg by mouth every 8 hours for 14 days. I will start this treatment today, and I will stop the vancomycin. 3. Glioblastoma multiforme. She came from home, and she has been on hospice. Will continue to monitor. 4. Malnutrition. She is tolerating by mouth. Continue with Clinimix as well. 5. Agitation. Will continue with the same management. She seems to be stable at this moment. Palliative Care on board. I have placed this patient on oral treatment for the streptococcus mutans bacteremia. I will continue to monitor this patient closely. I do not think the family wants aggressive treatment for this patient given her current condition. cc: Enoch Courtney MD
[2019-07-31] MEDS: CLEOCIN PO SCH ×2 (12:01→22:47)
[2019-08-01] MEDS: PEPCID IV SCH ×3 (01:27→22:23)
[2019-08-01] MEDS: CLINIMIX E 4.25%-5% SOLUTION 1,000 ML IV SCH ×3 (01:27→22:24)
[2019-08-01] MEDS: CLEOCIN PO SCH ×3 (05:56→22:23)
[2019-08-01] MEDS: DECADRON IV SCH (09:43)
[2019-08-01] MEDS: KEPPRA 2,000 MG in NS 100 ML IV SCH ×2 (09:43→22:23)
[2019-08-01] MEDS: ATIVAN IV PRN (11:51)
--- NOTE | 2019-08-01 17:40 | PROGRESS NOTE ---
DATE: 08/01/2019 SUBJECTIVE: This morning Ms. Lino was sleeping. There was a daughter at the bedside. She said that her mom did not sleep mostly at night, so is just taking a rest. OBJECTIVE: Vital signs: Blood pressure is 107/76, pulse of 110, respirations was 20, and temperature is 97.9 degrees. General: Ms. Herrera is a 64-year-old female. She was sleeping comfortably in bed in no distress. Chest: Clear to auscultation. Cardiovascular: Regular rate and rhythm. Abdomen: Soft. Bowel sounds present. Extremities: No pedal edema. ORGANIZATION DEVELOPMENT CONSULTANT: Patient was sleeping. She was, however, easily arousable. There was a scar on the left parietal scalp from previous surgery. LABORATORY DATA: No laboratory data today. ASSESSMENT: 1. Altered mental status on presentation secondary to postictal seizure state. 2. Seizure due to glioblastoma multiforme. 3. Streptococcal Viridans bacteremia. Repeat blood cultures have been 48 hours negative. 4. Protein calorie malnutrition. 5. In general, Ms. Lino has been evaluated by [facility], and they are getting all services ready tomorrow so we can hopefully discharge Ms. Lino home with hospice. cc: Omar Dawkins MD MTDD
[2019-08-02 05:15] VITALS: BP 129/76
[2019-08-02] MEDS: CLEOCIN PO SCH ×2 (05:41→12:23)
[2019-08-02] MEDS: CLINIMIX E 4.25%-5% SOLUTION 1,000 ML IV SCH (06:41)
[2019-08-02] MEDS: ATIVAN IV PRN (07:50)
[2019-08-02] MEDS: KEPPRA 2,000 MG in NS 100 ML IV SCH (08:54)
[2019-08-02] MEDS: DECADRON IV SCH (08:54)
[2019-08-02] MEDS: PEPCID IV SCH (12:23)
--- NOTE | 2019-08-03 14:25 | DISCHARGE SUMMARY ---
ADMISSION DATE: 07/28/2019 DISCHARGE DATE: 08/02/2019 DISPOSITION: Home. FOLLOWUP: Will be [facility]. CONSULTATIONS DURING ADMISSION: None. IMAGING STUDIES OF SIGNIFICANCE: Chest x-ray showed increased interstitial markings believed to be pulmonary edema. CT scan of the head shows slightly increase in the size of the left parietal mass. ADMISSION DIAGNOSES: 1. Altered mental status due to possible seizures. 2. History of glioblastoma multiforme, on hospice. 3. Agitation. DIAGNOSES AT THE TIME OF DISCHARGE: 1. Altered mental status on presentation presumed to be postictal state. 2. Seizures due to glioblastoma multiforme. 3. Known case of intractable glioblastoma multiforme. 4. Streptococcal viridans bacteremia. Repeat blood cultures have been negative. 5. Protein calorie malnutrition, improved. DISCHARGE MEDICATIONS: 1. Mirtazapine 15 mg p.o. at bedtime. 2. Multivitamin 1 tab daily. 3. Cyanocobalamin 500 mcg p.o. daily. 4. Omeprazole 20 mg p.o. daily. 5. Dexamethasone 4 mg p.o. daily. 6. Levothyroxine 200 mg p.o. 7. Megace 200 mg b.i.d. 8. Clindamycin 300 mg p.o. every 8 hours for 10 days. PRESENTING COMPLAINT: Altered mental status, possible seizures. HISTORY OF PRESENTING COMPLAINT: Ms. Lino is a 64-year-old -[place] female who is known to have hypothyroidism, previous CVA and glioblastoma multiforme, brought into the emergency department because she was seen having some jerky movement and became completely altered. The patient was subsequently admitted for possible seizures associated to GBM. A CT scan of the head seems to suggest that there was mild increase in the intracranial mass. HOSPITAL COURSE: Ms. Lino was admitted to the medical floor. She was started on IV form of levothyroxine and p.r.n. Ativan. She did not have any more of the jerking movements. Mentation did improve some. She has been switched back to her oral p.o. levothyroxine and she seems to be tolerating that. Palliative Medicine was consulted during this admission and Hospice was rearranged with [facility]. This morning Ms Lino refers to be doing okay and she recommends to be wanting to be discharged. We think she is clinically stable. Her repeat blood cultures have been 48 hours negative. She is going to be on oral clindamycin. This was discussed with infectious disease as per Dr. Vazquez's notes. All the discharge instructions were discussed with the daughter who was at the bedside at the time of the discharge, and she voiced understanding. Time spent for discharge was 38 minutes. cc: Omar Dawkins MD MTDD
== END 2019-08-02 15:27 | disposition hospice, home (50) | DRG 100 ==
LOC: SUPCPDRO → ED 08:32 → EDIPHOLD 15:34 → SUATTDRO 15:34 → 1N 16:49
PROVIDERS: ATTEND Internal Medicine